=== PATIENT | female | born 1945 | race Caucasian/White ===

== ENCOUNTER 2020-04-26 07:44 | Outpatient (REF) | payer MEDICARE, SELFPAY ==
[2020-04-26 08:45] LABS: Basophils Absolute Auto 0.1 X10*3/uL (0.0-0.2); Basophils Percent Auto 0.5 % (0-2); Eosinophils Absolute Auto 0.6 X10*3/uL (0.0-0.4); Eosinophils Percent Auto 3.9 % (0-4); Hematocrit 44.7 % (37-47); Hemoglobin 14.6 g/dl (12.0-16.0); Imm Gran Abs Auto 0.03 X10*3/uL (0.00-0.03); Imm Gran Pct Auto 0.2 % (0.0-0.4); Lymphocytes Percent Auto 73.1 % (20-40); MANUAL DIFF FLAG SCAN; Mean Corpuscular HGB Conc 32.7 g/dl (31.0-35.0); Mean Corpuscular Hemoglobin 30.4 pg (27.0-33.0); Mean Corpuscular Volume 92.9 fL (80-98); Mean Platelet Volume 10.3 fL (9.4-12.3); Monocytes Absolute Auto 0.8 X10*3/uL (0.1-1.2); Monocytes Percent Auto 5.9 % (2-11); Neutrophils Absolute Auto 2.3 X10*3/uL (2.0-8.3); Neutrophils Percent Auto 16.4 % (45-73); Platelet Count 199 X10*3/uL (160-400); Red Blood Count 4.81 X10*6/uL (4.20-5.50); Red Cell Distribution Width 13.1 % (11.0-16.0); SCAN SMEAR FLAG 1
[2020-04-26 08:46] LABS: Lymphocytes Absolute Auto 10.3 X10*3/uL (1.2-4.9)
[2020-04-26 09:08] LABS: Alanine Aminotransferase 27 U/L (0-31); Albumin Level 4.5 g/dL (3.5-5.0); Alkaline Phosphatase 66 U/L (39-117); Anion Gap 11 (12-20); Aspartate Amino Transferase 23 U/L (5-31); Bilirubin Total 0.6 mg/dL (0.0-1.0); Blood Urea Nitrogen 15 mg/dL (9-16); Calcium 9.2 mg/dL (8.4-10.2); Carbon Dioxide 29 mmol/L (22-29); Chloride 103 mmol/L (96-108); Estimated Glomerular Filt Rate > 60; Glucose Random 107 mg/dL (60-115); Potassium 3.9 mmol/l (3.3-5.1); Sodium 139 mmol/L (135-145); Total Protein 6.9 g/dL (6.5-8.0)
[2020-04-26 09:48] LABS: SLIDE REVIEW VERIFIED
== END 2020-04-26 07:45 | disposition home or self-care (01) ==
LOC: HO.LAB 07:44
PROVIDERS: PCP Internal Medicine; Visit Provider Internal Medicine Medical Oncology
DX: D72.820 Lymphocytosis (symptomatic) (principal); E78.2 Mixed hyperlipidemia
CPT/HCPCS: 36415; 80053; 84550; 85025

== ENCOUNTER 2020-09-14 08:02 | Outpatient (REF) | payer MEDICARE, SELFPAY ==
[2020-09-14 08:46] LABS: Basophils Absolute Auto 0.1 X10*3/uL (0.0-0.2); Basophils Percent Auto 0.6 % (0-2); Eosinophils Absolute Auto 0.6 X10*3/uL (0.0-0.4); Eosinophils Percent Auto 3.7 % (0-4); Hematocrit 41.6 % (37-47); Hemoglobin 13.9 g/dl (12.0-16.0); Imm Gran Abs Auto 0.04 X10*3/uL (0.00-0.03); Imm Gran Pct Auto 0.2 % (0.0-0.4); Lymphocytes Percent Auto 77.6 % (20-40); MANUAL DIFF FLAG SCAN; Mean Corpuscular HGB Conc 33.4 g/dl (31.0-35.0); Mean Corpuscular Hemoglobin 30.9 pg (27.0-33.0); Mean Corpuscular Volume 92.4 fL (80-98); Mean Platelet Volume 10.9 fL (9.4-12.3); Monocytes Absolute Auto 0.8 X10*3/uL (0.1-1.2); Monocytes Percent Auto 4.8 % (2-11); Neutrophils Absolute Auto 2.2 X10*3/uL (2.0-8.3); Neutrophils Percent Auto 13.1 % (45-73); Platelet Count 180 X10*3/uL (160-400); Red Cell Distribution Width 12.9 % (11.0-16.0); SCAN SMEAR FLAG 1; White Blood Count 17.1 X10*3/uL (4.8-10.8)
[2020-09-14 08:51] LABS: Lymphocytes Absolute Auto 13.2 X10*3/uL (1.2-4.9)
[2020-09-14 09:25] LABS: Alanine Aminotransferase 28 U/L (0-31); Albumin Level 4.4 g/dL (3.5-5.0); Alkaline Phosphatase 62 U/L (39-117); Anion Gap 14 (12-20); Aspartate Amino Transferase 22 U/L (5-31); Bilirubin Total 0.7 mg/dL (0.0-1.0); Blood Urea Nitrogen 18 mg/dL (9-16); Calcium 9.3 mg/dL (8.4-10.2); Carbon Dioxide 28 mmol/L (22-29); Chloride 103 mmol/L (96-108); Estimated Glomerular Filt Rate > 60; Glucose Random 110 mg/dL (60-115); Potassium 4.5 mmol/L (3.3-5.1); Sodium 140 mmol/L (135-145); Total Protein 6.9 g/dL (6.5-8.0)
[2020-09-14 10:07] LABS: SLIDE REVIEW VERIFIED
== END 2020-09-14 08:03 | disposition home or self-care (01) ==
LOC: HO.LAB 08:02
PROVIDERS: PCP Internal Medicine; Visit Provider Internal Medicine Medical Oncology
DX: D72.820 Lymphocytosis (symptomatic) (principal); E66.9 Obesity, unspecified; E78.2 Mixed hyperlipidemia; C91.10 Chronic lymphocytic leukemia of B-cell type not having achieved remission
CPT/HCPCS: 36415; 80053; 85025

== ENCOUNTER 2020-12-13 08:15 | Outpatient (REF) | payer MEDICARE, SELFPAY ==
[2020-12-13 09:00] LABS: Basophils Absolute Auto 0.1 X10*3/uL (0.0-0.2); Basophils Percent Auto 0.6 % (0-2); Eosinophils Absolute Auto 0.5 X10*3/uL (0.0-0.4); Eosinophils Percent Auto 3.6 % (0-4); Hematocrit 42.3 % (37-47); Imm Gran Abs Auto 0.03 X10*3/uL (0.00-0.03); Imm Gran Pct Auto 0.2 % (0.0-0.4); MANUAL DIFF FLAG SCAN; Mean Corpuscular HGB Conc 33.1 g/dl (31.0-35.0); Mean Corpuscular Hemoglobin 30.8 pg (27.0-33.0); Mean Platelet Volume 10.5 fL (9.4-12.3); Monocytes Absolute Auto 0.9 X10*3/uL (0.1-1.2); Monocytes Percent Auto 6.8 % (2-11); Neutrophils Absolute Auto 2.1 X10*3/uL (2.0-8.3); Neutrophils Percent Auto 15.8 % (45-73); Platelet Count 196 X10*3/uL (160-400); Red Blood Count 4.55 X10*6/uL (4.20-5.50); Red Cell Distribution Width 13.1 % (11.0-16.0); SCAN SMEAR FLAG 1; White Blood Count 13.2 X10*3/uL (4.8-10.8)
[2020-12-13 09:03] LABS: Lymphocytes Absolute Auto 9.6 X10*3/uL (1.2-4.9)
[2020-12-13 09:20] LABS: Alanine Aminotransferase 27 U/L (0-31); Albumin Level 4.4 g/dL (3.5-5.0); Alkaline Phosphatase 64 U/L (39-117); Anion Gap 14 (12-20); Aspartate Amino Transferase 24 U/L (5-31); Blood Urea Nitrogen 17 mg/dL (9-16); Calcium 9.2 mg/dL (8.4-10.2); Carbon Dioxide 26 mmol/L (22-29); Chloride 100 mmol/L (96-108); Estimated Glomerular Filt Rate > 60; Glucose Random 112 mg/dL (60-115); Sodium 136 mmol/L (135-145); Total Protein 6.9 g/dL (6.5-8.0)
[2020-12-13 09:24] LABS: SLIDE REVIEW VERIFIED
[2020-12-14 11:42] LABS: Beta-2 Microglobulin, Serum 2.09 mg/L (< OR = 2.51)
== END 2020-12-13 08:16 | disposition home or self-care (01) ==
LOC: HO.LAB 08:15
PROVIDERS: PCP Internal Medicine; Visit Provider Internal Medicine Medical Oncology
DX: D72.820 Lymphocytosis (symptomatic) (principal); E78.2 Mixed hyperlipidemia; E66.9 Obesity, unspecified
CPT/HCPCS: 36415; 80053; 82232; 85025

== ENCOUNTER 2021-01-27 08:19 | Outpatient (REF) | payer MEDICARE, SELFPAY ==
[2021-01-27 08:52] LABS: Basophils Absolute Auto 0.1 X10*3/uL (0.0-0.2); Basophils Percent Auto 0.6 % (0-2); Eosinophils Absolute Auto 0.6 X10*3/uL (0.0-0.4); Eosinophils Percent Auto 4.2 % (0-4); Hematocrit 43.2 % (37-47); Hemoglobin 14.2 g/dl (12.0-16.0); Imm Gran Abs Auto 0.03 X10*3/uL (0.00-0.03); Imm Gran Pct Auto 0.2 % (0.0-0.4); Lymphocytes Percent Auto 73.2 % (20-40); MANUAL DIFF FLAG SCAN; Mean Corpuscular HGB Conc 32.9 g/dl (31.0-35.0); Mean Corpuscular Hemoglobin 30.6 pg (27.0-33.0); Mean Corpuscular Volume 93.1 fL (80-98); Mean Platelet Volume 10.2 fL (9.4-12.3); Monocytes Absolute Auto 0.9 X10*3/uL (0.1-1.2); Monocytes Percent Auto 6.2 % (2-11); Neutrophils Absolute Auto 2.3 X10*3/uL (2.0-8.3); Neutrophils Percent Auto 15.6 % (45-73); Platelet Count 190 X10*3/uL (160-400); Red Blood Count 4.64 X10*6/uL (4.20-5.50); Red Cell Distribution Width 13.4 % (11.0-16.0); SCAN SMEAR FLAG 1; White Blood Count 14.4 X10*3/uL (4.8-10.8)
[2021-01-27 08:56] LABS: Lymphocytes Absolute Auto 10.5 X10*3/uL (1.2-4.9)
[2021-01-27 09:22] LABS: Alanine Aminotransferase 32 U/L (0-31); Albumin Level 4.5 g/dL (3.5-5.0); Alkaline Phosphatase 65 U/L (39-117); Anion Gap 14 (12-20); Aspartate Amino Transferase 26 U/L (5-31); Bilirubin Total 0.7 mg/dL (0.0-1.0); Blood Urea Nitrogen 16 mg/dL (9-16); Calcium 9.9 mg/dL (8.4-10.2); Carbon Dioxide 27 mmol/L (22-29); Chloride 103 mmol/L (96-108); Cholesterol 183 mg/dL; Estimated Glomerular Filt Rate 58; Glucose Random 123 mg/dL (60-115); HDL Cholesterol 50 mg/dL; LDL Cholesterol Calculated 101 mg/dl; Potassium 4.4 mmol/L (3.3-5.1); Sodium 140 mmol/L (135-145); Total Protein 7.1 g/dL (6.5-8.0); Triglycerides 160 mg/dL
[2021-01-27 09:30] LABS: SLIDE REVIEW VERIFIED
== END 2021-01-27 08:20 | disposition home or self-care (01) ==
LOC: HO.LAB 08:19
PROVIDERS: PCP Internal Medicine; Visit Provider Internal Medicine
DX: E78.2 Mixed hyperlipidemia (principal); I10 Essential (primary) hypertension; Z72.0 Tobacco use
CPT/HCPCS: 36415; 80053; 80061; 85025

== ENCOUNTER 2021-04-14 08:17 | Outpatient (REF) | payer MEDICARE, SELFPAY ==
[2021-04-14 10:33] LABS: Basophils Absolute Auto 0.1 X10*3/uL (0.0-0.2); Basophils Percent Auto 0.5 % (0-2); Eosinophils Absolute Auto 0.4 X10*3/uL (0.0-0.4); Eosinophils Percent Auto 3.3 % (0-4); Hematocrit 42.9 % (37-47); Hemoglobin 14.2 g/dl (12.0-16.0); Imm Gran Abs Auto 0.03 X10*3/uL (0.00-0.03); Imm Gran Pct Auto 0.2 % (0.0-0.4); Lymphocytes Percent Auto 74.1 % (20-40); MANUAL DIFF FLAG SCAN; Mean Corpuscular HGB Conc 33.1 g/dl (31.0-35.0); Mean Corpuscular Hemoglobin 30.7 pg (27.0-33.0); Mean Corpuscular Volume 92.9 fL (80-98); Mean Platelet Volume 10.9 fL (9.4-12.3); Monocytes Absolute Auto 0.9 X10*3/uL (0.1-1.2); Monocytes Percent Auto 6.8 % (2-11); Neutrophils Percent Auto 15.1 % (45-73); Platelet Count 181 X10*3/uL (160-400); Red Blood Count 4.62 X10*6/uL (4.20-5.50); Red Cell Distribution Width 13.3 % (11.0-16.0); SCAN SMEAR FLAG 1; White Blood Count 13.2 X10*3/uL (4.8-10.8)
[2021-04-14 10:35] LABS: Alanine Aminotransferase 26 U/L (0-31); Albumin Level 4.4 g/dL (3.5-5.0); Alkaline Phosphatase 63 U/L (39-117); Anion Gap 16 (12-20); Aspartate Amino Transferase 26 U/L (5-31); Bilirubin Total 0.9 mg/dL (0.0-1.0); Blood Urea Nitrogen 16 mg/dL (9-16); Calcium 9.8 mg/dL (8.4-10.2); Carbon Dioxide 26 mmol/L (22-29); Chloride 103 mmol/L (96-108); Estimated Glomerular Filt Rate > 60; Glucose Random 95 mg/dL (60-115); Lactate Dehydrogenase 198 U/L (122-220); Potassium 3.9 mmol/L (3.3-5.1); Sodium 141 mmol/L (135-145)
[2021-04-14 10:38] LABS: Lymphocytes Absolute Auto 9.8 X10*3/uL (1.2-4.9)
[2021-04-14 13:16] LABS: SLIDE REVIEW VERIFIED
== END 2021-04-14 08:18 | disposition home or self-care (01) ==
LOC: HO.LAB 08:17
PROVIDERS: PCP Internal Medicine; Visit Provider Internal Medicine Medical Oncology
DX: C91.10 Chronic lymphocytic leukemia of B-cell type not having achieved remission (principal)
CPT/HCPCS: 36415; 80053; 83615; 85025

== ENCOUNTER 2021-04-27 08:05 | Outpatient (REF) | payer MEDICARE, SELFPAY ==
[2021-04-27 08:59] LABS: Estimated Average Glucose 108 mg/dL; Hemoglobin A1c % 5.4 %
[2021-04-27 09:07] LABS: Alanine Aminotransferase 34 U/L (0-31); Albumin Level 4.4 g/dL (3.5-5.0); Alkaline Phosphatase 64 U/L (39-117); Anion Gap 11 (12-20); Aspartate Amino Transferase 27 U/L (5-31); Bilirubin Total 0.8 mg/dL (0.0-1.0); Blood Urea Nitrogen 13 mg/dL (9-16); Calcium 9.4 mg/dL (8.4-10.2); Carbon Dioxide 29 mmol/L (22-29); Chloride 104 mmol/L (96-108); Estimated Glomerular Filt Rate > 60; Glucose Random 108 mg/dL (60-115); Potassium 4.2 mmol/L (3.3-5.1); Sodium 140 mmol/L (135-145); Total Protein 6.8 g/dL (6.5-8.0)
== END 2021-04-27 08:06 | disposition home or self-care (01) ==
LOC: HO.LAB 08:05
PROVIDERS: PCP Internal Medicine; Visit Provider Internal Medicine
DX: Z00.00 Encounter for general adult medical examination without abnormal findings (principal); E78.2 Mixed hyperlipidemia; I10 Essential (primary) hypertension; R73.01 Impaired fasting glucose; Z72.0 Tobacco use
CPT/HCPCS: 36415; 80053; 83036

== ENCOUNTER 2021-09-15 07:31 | Outpatient (REF) | payer MEDICARE, SELFPAY ==
[2021-09-15 08:25] LABS: Basophils Absolute Auto 0.1 X10*3/uL (0.0-0.2); Basophils Percent Auto 0.5 % (0-2); Eosinophils Absolute Auto 0.6 X10*3/uL (0.0-0.4); Eosinophils Percent Auto 3.4 % (0-4); Hematocrit 43.2 % (37.0-47.0); Hemoglobin 13.9 g/dl (12.0-16.0); Imm Gran Abs Auto 0.05 X10*3/uL (0.00-0.03); Imm Gran Pct Auto 0.3 % (0.0-0.4); Lymphocytes Percent Auto 73.9 % (20-40); MANUAL DIFF FLAG SCAN; Mean Corpuscular HGB Conc 32.2 g/dl (31.0-35.0); Mean Corpuscular Hemoglobin 30.8 pg (27.0-33.0); Mean Corpuscular Volume 95.6 fL (80.0-98.0); Mean Platelet Volume 10.6 fL (9.4-12.3); Monocytes Percent Auto 5.9 % (2-11); Neutrophils Absolute Auto 2.7 x10*3/uL (2.0-8.3); Platelet Count 190 X10*3/uL (160-400); Red Blood Count 4.52 X10*6/uL (4.20-5.50); Red Cell Distribution Width 13.1 % (11.0-16.0); SCAN SMEAR FLAG 1
[2021-09-15 08:27] LABS: Lymphocytes Absolute Auto 12.5 X10*3/uL (1.2-4.9)
[2021-09-15 08:46] LABS: Alanine Aminotransferase 24 U/L (0-31); Albumin Level 4.3 g/dL (3.5-5.0); Alkaline Phosphatase 65 U/L (39-117); Anion Gap 13 (12-20); Aspartate Amino Transferase 23 U/L (5-31); Bilirubin Total 0.9 mg/dL (0.0-1.0); Blood Urea Nitrogen 15 mg/dL (9-16); Calcium 9.5 mg/dL (8.4-10.2); Carbon Dioxide 29 mmol/L (22-29); Chloride 102 mmol/L (96-108); Estimated Glomerular Filt Rate > 60; Glucose Random 108 mg/dL (60-115); Lactate Dehydrogenase 169 U/L (122-220); Potassium 4.3 mmol/L (3.3-5.1); Sodium 140 mmol/L (135-145); Total Protein 6.9 g/dL (6.5-8.0)
[2021-09-15 08:52] LABS: SLIDE REVIEW VERIFIED
[2021-09-15 09:10] LABS: Erythrocyte Sedimentation Rate 7 MM/HR (0-20)
== END 2021-09-15 07:32 | disposition home or self-care (01) ==
LOC: HO.LAB 07:31
PROVIDERS: PCP Internal Medicine; Visit Provider Internal Medicine Medical Oncology
DX: E78.2 Mixed hyperlipidemia (principal); E66.9 Obesity, unspecified; C91.10 Chronic lymphocytic leukemia of B-cell type not having achieved remission
CPT/HCPCS: 36415; 80053; 83615; 85025; 85652

== ENCOUNTER 2021-10-10 12:52 | Outpatient (REF) | payer MEDICARE, SELFPAY ==
--- NOTE | ~2021-10-10 | MM_ITS ---
EXAMINATION: MM SCREENING DIGITAL BREAST TOMOSYNTHESIS, BILATERAL CLINICAL INFORMATION: Screening. Asymptomatic. The lifetime risk of breast cancer based on the Tyrer-Cuzick Model is 3.9%. COMPARISON: Mammography: February 20, 2019 and studies dating through February 04, 2015 TECHNIQUE: Digital breast tomosynthesis is performed in both the craniocaudal and mediolateral oblique views along with computer-aided detection (CAD). Synthesized 2D images are generated from the tomosynthesis. FINDINGS: There are scattered areas of fibroglandular density (ACR BI-RADS breast composition Category b). There are no significant masses, abnormal calcifications, or other abnormalities. MM/MM tomosynthesis screening BI IMPRESSION: There are no significant changes from prior study. ASSESSMENT: BI-RADS 1: Negative RECOMMENDATION: Routine annual mammography screening. This patient's information was entered into a reminder system with a target due date for their next mammogram.
== END 2021-10-10 12:53 | disposition home or self-care (01) ==
LOC: HO.MAMMO 12:52
PROVIDERS: PCP Internal Medicine; Visit Provider Internal Medicine Medical Oncology
DX: Z12.31 Encounter for screening mammogram for malignant neoplasm of breast (principal)
CPT/HCPCS: 77063; 77067

== ENCOUNTER 2022-01-26 07:56 | Outpatient (REF) | payer MEDICARE, SELFPAY ==
[2022-01-26 08:49] LABS: Basophils Absolute Auto 0.1 X10*3/uL (0.0-0.2); Basophils Percent Auto 0.6 % (0-2); Eosinophils Absolute Auto 0.6 X10*3/uL (0.0-0.4); Eosinophils Percent Auto 4.2 % (0-4); Hematocrit 42.4 % (37.0-47.0); Hemoglobin 14.2 g/dl (12.0-16.0); Imm Gran Abs Auto 0.03 X10*3/uL (0.00-0.03); Imm Gran Pct Auto 0.2 % (0.0-0.4); MANUAL DIFF FLAG SCAN; Mean Corpuscular HGB Conc 33.5 g/dl (31.0-35.0); Mean Corpuscular Hemoglobin 30.9 pg (27.0-33.0); Mean Corpuscular Volume 92.4 fL (80.0-98.0); Mean Platelet Volume 10.6 fL (9.4-12.3); Monocytes Absolute Auto 0.9 X10*3/uL (0.1-1.2); Monocytes Percent Auto 6.7 % (2-11); Neutrophils Absolute Auto 2.3 x10*3/uL (2.0-8.3); Neutrophils Percent Auto 16.3 % (45-73); Platelet Count 175 X10*3/uL (160-400); Red Blood Count 4.59 X10*6/uL (4.20-5.50); Red Cell Distribution Width 13.2 % (11.0-16.0); SCAN SMEAR FLAG 1
[2022-01-26 08:54] LABS: Lymphocytes Absolute Auto 10.1 X10*3/uL (1.2-4.9)
[2022-01-26 09:13] LABS: SLIDE REVIEW VERIFIED
[2022-01-26 09:27] LABS: Alanine Aminotransferase 26 U/L (0-31); Albumin Level 4.4 g/dL (3.5-5.0); Alkaline Phosphatase 61 U/L (39-117); Anion Gap 13 (12-20); Aspartate Amino Transferase 23 U/L (5-31); Bilirubin Total 0.9 mg/dL (0.0-1.0); Blood Urea Nitrogen 16 mg/dL (9-16); Calcium 9.2 mg/dL (8.4-10.2); Carbon Dioxide 28 mmol/L (22-29); Chloride 103 mmol/L (96-108); Cholesterol 186 mg/dL; Estimated Glomerular Filt Rate > 60; Glucose Random 104 mg/dL (60-115); HDL Cholesterol 50 mg/dL; LDL Cholesterol Calculated 89 mg/dl; Potassium 3.9 mmol/L (3.3-5.1); Sodium 140 mmol/L (135-145); Total Protein 7.1 g/dL (6.5-8.0); Triglycerides 237 mg/dL
== END 2022-01-26 07:57 | disposition home or self-care (01) ==
LOC: HO.LAB 07:56
PROVIDERS: PCP Internal Medicine; Visit Provider Internal Medicine
DX: E78.2 Mixed hyperlipidemia (principal); I10 Essential (primary) hypertension; J45.909 Unspecified asthma, uncomplicated; Z72.0 Tobacco use
CPT/HCPCS: 36415; 80053; 80061; 85025

== ENCOUNTER 2022-03-21 07:54 | Outpatient (REF) | payer MEDICARE, SELFPAY ==
[2022-03-21 08:37] LABS: Basophils Absolute Auto 0.1 X10*3/uL (0.0-0.2); Basophils Percent Auto 0.6 % (0-2); Eosinophils Absolute Auto 0.6 X10*3/uL (0.0-0.4); Hematocrit 42.1 % (37.0-47.0); Hemoglobin 14.3 g/dl (12.0-16.0); Imm Gran Abs Auto 0.05 X10*3/uL (0.00-0.03); Imm Gran Pct Auto 0.2 % (0.0-0.4); Lymphocytes Percent Auto 78.2 % (20-40); MANUAL DIFF FLAG SCAN; Mean Corpuscular Hemoglobin 30.7 pg (27.0-33.0); Mean Corpuscular Volume 90.3 fL (80.0-98.0); Monocytes Percent Auto 4.7 % (2-11); Neutrophils Absolute Auto 2.7 x10*3/uL (2.0-8.3); Neutrophils Percent Auto 13.3 % (45-73); Platelet Count 229 X10*3/uL (160-400); Red Blood Count 4.66 X10*6/uL (4.20-5.50); Red Cell Distribution Width 13.1 % (11.0-16.0); SCAN SMEAR FLAG 1; White Blood Count 20.4 X10*3/uL (4.8-10.8)
[2022-03-21 08:38] LABS: Lymphocytes Absolute Auto 15.9 X10*3/uL (1.2-4.9)
[2022-03-21 09:07] LABS: SLIDE REVIEW VERIFIED
[2022-03-21 09:30] LABS: Alanine Aminotransferase 30 U/L (0-31); Albumin Level 4.4 g/dL (3.5-5.0); Alkaline Phosphatase 59 U/L (39-117); Anion Gap 16 (12-20); Aspartate Amino Transferase 25 U/L (5-31); Bilirubin Total 0.9 mg/dL (0.0-1.0); Blood Urea Nitrogen 12 mg/dL (9-16); Calcium 9.3 mg/dL (8.4-10.2); Carbon Dioxide 26 mmol/L (22-29); Chloride 97 mmol/L (96-108); Estimated Glomerular Filt Rate > 60; Glucose Random 99 mg/dL (60-115); Potassium 4.3 mmol/L (3.3-5.1); Sodium 135 mmol/L (135-145); Total Protein 7.1 g/dL (6.5-8.0)
== END 2022-03-21 07:55 | disposition home or self-care (01) ==
LOC: HO.LAB 07:54
PROVIDERS: PCP Internal Medicine; Visit Provider Internal Medicine Medical Oncology
DX: C91.10 Chronic lymphocytic leukemia of B-cell type not having achieved remission (principal); E78.2 Mixed hyperlipidemia
CPT/HCPCS: 36415; 80053; 85025

== ENCOUNTER 2022-07-31 07:45 | Outpatient (REF) | payer MEDICARE, SELFPAY ==
[2022-07-31 08:58] LABS: Alanine Aminotransferase 40 U/L (0-31); Albumin Level 4.3 g/dL (3.5-5.0); Alkaline Phosphatase 68 U/L (39-117); Anion Gap 13 (12-20); Aspartate Amino Transferase 32 U/L (5-31); Bilirubin Total 0.9 mg/dL (0.0-1.0); Blood Urea Nitrogen 18 mg/dL (9-16); Calcium 9.9 mg/dL (8.4-10.2); Carbon Dioxide 28 mmol/L (22-29); Chloride 104 mmol/L (96-108); Estimated Glomerular Filt Rate > 60; Glucose Random 114 mg/dL (60-115); Potassium 3.8 mmol/L (3.3-5.1); Sodium 141 mmol/L (135-145)
== END 2022-07-31 07:46 | disposition home or self-care (01) ==
LOC: HO.LAB 07:45
PROVIDERS: PCP Internal Medicine; Visit Provider Internal Medicine
DX: Z00.00 Encounter for general adult medical examination without abnormal findings (principal); E78.2 Mixed hyperlipidemia; I10 Essential (primary) hypertension; Z72.0 Tobacco use
CPT/HCPCS: 36415; 80053

== ENCOUNTER 2022-10-10 08:01 | Outpatient (REF) | payer MEDICARE, SELFPAY ==
[2022-10-10 09:41] LABS: Basophils Absolute Auto 0.1 X10*3/uL (0.0-0.2); Basophils Percent Auto 0.6 % (0-2); Eosinophils Absolute Auto 0.7 X10*3/uL (0.0-0.4); Eosinophils Percent Auto 4.1 % (0-4); Hematocrit 43.1 % (37.0-47.0); Hemoglobin 13.8 g/dl (12.0-16.0); Imm Gran Abs Auto 0.02 X10*3/uL (0.00-0.03); Imm Gran Pct Auto 0.1 % (0.0-0.4); Lymphocytes Percent Auto 77.1 % (20-40); MANUAL DIFF FLAG SCAN; Mean Corpuscular Hemoglobin 29.6 pg (27.0-33.0); Mean Corpuscular Volume 92.3 fL (80.0-98.0); Mean Platelet Volume 11.1 fL (9.4-12.3); Monocytes Absolute Auto 0.8 X10*3/uL (0.1-1.2); Monocytes Percent Auto 5.3 % (2-11); Neutrophils Percent Auto 12.8 % (45-73); Platelet Count 186 X10*3/uL (160-400); Red Blood Count 4.67 X10*6/uL (4.20-5.50); Red Cell Distribution Width 12.6 % (11.0-16.0); SCAN SMEAR FLAG 1; White Blood Count 15.8 X10*3/uL (4.8-10.8)
[2022-10-10 09:43] LABS: Lymphocytes Absolute Auto 12.2 X10*3/uL (1.2-4.9)
[2022-10-10 10:19] LABS: Alanine Aminotransferase 25 U/L (0-31); Albumin Level 4.2 g/dL (3.5-5.0); Alkaline Phosphatase 62 U/L (39-117); Anion Gap 11 (12-20); Aspartate Amino Transferase 21 U/L (5-31); Bilirubin Total 0.8 mg/dL (0.0-1.0); Blood Urea Nitrogen 16 mg/dL (9-16); Calcium 9.4 mg/dL (8.4-10.2); Carbon Dioxide 30 mmol/L (22-29); Chloride 105 mmol/L (96-108); Estimated Glomerular Filt Rate > 60; Glucose Random 108 mg/dL (60-115); Lactate Dehydrogenase 189 U/L (122-220); Potassium 4.1 mmol/L (3.3-5.1); Sodium 142 mmol/L (135-145); Total Protein 6.7 g/dL (6.5-8.0)
[2022-10-10 10:25] LABS: SLIDE REVIEW VERIFIED
[2022-10-12 15:08] LABS: Beta-2 Microglobulin, Serum 2.68 mg/L (< OR = 2.51)
== END 2022-10-10 08:02 | disposition home or self-care (01) ==
LOC: HO.LAB 08:01
PROVIDERS: PCP Internal Medicine; Visit Provider Internal Medicine Medical Oncology
DX: C91.10 Chronic lymphocytic leukemia of B-cell type not having achieved remission (principal)
CPT/HCPCS: 36415; 80053; 82232; 83615; 85025

== ENCOUNTER 2023-01-30 07:17 | Outpatient (REF) | payer MEDICARE, SELFPAY ==
[2023-01-30 08:26] LABS: Basophils Absolute Auto 0.1 X10*3/uL (0.0-0.2); Basophils Percent Auto 0.5 % (0-2); Eosinophils Absolute Auto 0.8 X10*3/uL (0.0-0.4); Eosinophils Percent Auto 4.6 % (0-4); Hematocrit 42.1 % (37.0-47.0); Hemoglobin 13.8 g/dl (12.0-16.0); Imm Gran Abs Auto 0.03 X10*3/uL (0.00-0.03); Imm Gran Pct Auto 0.2 % (0.0-0.4); Lymphocytes Percent Auto 78.6 % (20-40); MANUAL DIFF FLAG SCAN; Mean Corpuscular HGB Conc 32.8 g/dl (31.0-35.0); Mean Corpuscular Hemoglobin 29.1 pg (27.0-33.0); Mean Corpuscular Volume 88.6 fL (80.0-98.0); Mean Platelet Volume 10.8 fL (9.4-12.3); Monocytes Absolute Auto 0.9 X10*3/uL (0.1-1.2); Monocytes Percent Auto 4.8 % (2-11); Neutrophils Percent Auto 11.3 % (45-73); Platelet Count 187 X10*3/uL (160-400); Red Blood Count 4.75 X10*6/uL (4.20-5.50); Red Cell Distribution Width 12.9 % (11.0-16.0); SCAN SMEAR FLAG 1; White Blood Count 17.8 X10*3/uL (4.8-10.8)
[2023-01-30 08:50] LABS: SLIDE REVIEW VERIFIED
[2023-01-30 09:12] LABS: Alanine Aminotransferase 20 U/L (0-31); Albumin Level 4.3 g/dL (3.5-5.0); Alkaline Phosphatase 57 U/L (39-117); Anion Gap 15 (12-20); Aspartate Amino Transferase 21 U/L (5-31); Bilirubin Total 0.8 mg/dL (0.0-1.0); Blood Urea Nitrogen 18 mg/dL (9-16); Calcium 9.8 mg/dL (8.4-10.2); Carbon Dioxide 26 mmol/L (22-29); Chloride 103 mmol/L (96-108); Cholesterol 173 mg/dL; Estimated Glomerular Filt Rate > 60; Glucose Random 97 mg/dL (60-115); HDL Cholesterol 45 mg/dL; LDL Cholesterol Calculated 89 mg/dl; Potassium 3.7 mmol/L (3.3-5.1); Sodium 140 mmol/L (135-145); Total Protein 7.2 g/dL (6.5-8.0); Triglycerides 198 mg/dL
[2023-01-30 09:31] LABS: Thyroid Stimulating Hormone 2.14 uIU/mL (0.32-4.0)
== END 2023-01-30 07:18 | disposition home or self-care (01) ==
LOC: HO.LAB 07:17
PROVIDERS: PCP Internal Medicine; Visit Provider Internal Medicine
DX: C91.11 Chronic lymphocytic leukemia of B-cell type in remission (principal); E78.5 Hyperlipidemia, unspecified; I10 Essential (primary) hypertension; R74.01 Elevation of levels of liver transaminase levels; Z72.0 Tobacco use
CPT/HCPCS: 36415; 80053; 80061; 84443; 85025

== ENCOUNTER 2023-04-17 06:58 | Outpatient (REF) | payer MEDICARE, SELFPAY ==
[2023-04-17 07:38] LABS: Basophils Absolute Auto 0.1 X10*3/uL (0.0-0.2); Basophils Percent Auto 0.6 % (0-2); Eosinophils Absolute Auto 0.9 X10*3/uL (0.0-0.4); Eosinophils Percent Auto 4.7 % (0-4); Hematocrit 43.6 % (37.0-47.0); Hemoglobin 14.3 g/dl (12.0-16.0); Imm Gran Abs Auto 0.03 X10*3/uL (0.00-0.03); Imm Gran Pct Auto 0.2 % (0.0-0.4); Lymphocytes Percent Auto 79.9 % (20-40); MANUAL DIFF FLAG SCAN; Mean Corpuscular HGB Conc 32.8 g/dl (31.0-35.0); Mean Corpuscular Hemoglobin 29.5 pg (27.0-33.0); Mean Corpuscular Volume 89.9 fL (80.0-98.0); Mean Platelet Volume 10.3 fL (9.4-12.3); Monocytes Absolute Auto 0.8 X10*3/uL (0.1-1.2); Monocytes Percent Auto 4.6 % (2-11); Neutrophils Absolute Auto 1.8 x10*3/uL (2.0-8.3); Platelet Count 181 X10*3/uL (160-400); Red Blood Count 4.85 X10*6/uL (4.20-5.50); Red Cell Distribution Width 13.2 % (11.0-16.0); SCAN SMEAR FLAG 1; White Blood Count 18.1 X10*3/uL (4.8-10.8)
[2023-04-17 07:40] LABS: Lymphocytes Absolute Auto 14.5 X10*3/uL (1.2-4.9)
[2023-04-17 08:07] LABS: Alanine Aminotransferase 21 U/L (0-31); Albumin Level 4.4 g/dL (3.5-5.0); Alkaline Phosphatase 66 U/L (39-117); Anion Gap 13 (12-20); Aspartate Amino Transferase 21 U/L (5-31); Bilirubin Total 0.6 mg/dL (0.0-1.0); Blood Urea Nitrogen 15 mg/dL (9-16); Calcium 9.7 mg/dL (8.4-10.2); Carbon Dioxide 27 mmol/L (22-29); Chloride 105 mmol/L (96-108); Estimated Glomerular Filt Rate > 60; Glucose Random 95 mg/dL (60-115); Lactate Dehydrogenase 172 U/L (122-220); Potassium 4.1 mmol/L (3.3-5.1); Sodium 141 mmol/L (135-145); Total Protein 7.2 g/dL (6.5-8.0)
[2023-04-17 08:27] LABS: SLIDE REVIEW VERIFIED
[2023-04-17 08:29] LABS: Erythrocyte Sedimentation Rate 7 MM/HR (0-20)
== END 2023-04-17 06:59 | disposition home or self-care (01) ==
LOC: HO.LAB 06:58
PROVIDERS: PCP Internal Medicine; Visit Provider Internal Medicine Medical Oncology
DX: C91.10 Chronic lymphocytic leukemia of B-cell type not having achieved remission (principal); E78.2 Mixed hyperlipidemia; E66.3 Overweight
CPT/HCPCS: 36415; 80053; 83615; 85025; 85652

== ENCOUNTER 2023-08-18 07:19 | Outpatient (REF) | payer MEDICARE, SELFPAY ==
[2023-08-18 09:26] LABS: Basophils Absolute Auto 0.1 X10*3/uL (0.0-0.2); Basophils Percent Auto 0.4 % (0-2); Eosinophils Absolute Auto 0.5 X10*3/uL (0.0-0.4); Eosinophils Percent Auto 2.8 % (0-4); Hematocrit 38.3 % (37.0-47.0); Hemoglobin 12.3 g/dl (12.0-16.0); Imm Gran Abs Auto 0.02 X10*3/uL (0.00-0.03); Imm Gran Pct Auto 0.1 % (0.0-0.4); Lymphocytes Absolute Auto 15.8 X10*3/uL (1.2-4.9); Lymphocytes Percent Auto 81.9 % (20-40); MANUAL DIFF FLAG SCAN; Mean Corpuscular HGB Conc 32.1 g/dl (31.0-35.0); Mean Corpuscular Hemoglobin 29.1 pg (27.0-33.0); Mean Corpuscular Volume 90.5 fL (80.0-98.0); Mean Platelet Volume 10.3 fL (9.4-12.3); Monocytes Absolute Auto 0.8 X10*3/uL (0.1-1.2); Monocytes Percent Auto 4.1 % (2-11); Neutrophils Absolute Auto 2.1 x10*3/uL (2.0-8.3); Neutrophils Percent Auto 10.7 % (45-73); Platelet Count 203 X10*3/uL (160-400); Red Blood Count 4.23 X10*6/uL (4.20-5.50); Red Cell Distribution Width 13.4 % (11.0-16.0); SCAN SMEAR FLAG 1; White Blood Count 19.2 X10*3/uL (4.8-10.8)
[2023-08-18 10:19] LABS: SLIDE REVIEW VERIFIED
[2023-08-18 10:30] LABS: Alanine Aminotransferase 19 U/L (0-31); Albumin Level 3.9 g/dL (3.5-5.0); Alkaline Phosphatase 61 U/L (39-117); Anion Gap 16 (12-20); Aspartate Amino Transferase 19 U/L (5-31); Bilirubin Total 0.5 mg/dL (0.0-1.0); Blood Urea Nitrogen 14 mg/dL (9-16); Calcium 9.5 mg/dL (8.4-10.2); Carbon Dioxide 26 mmol/L (22-29); Chloride 104 mmol/L (96-108); Estimated Glomerular Filt Rate 54; Glucose Random 85 mg/dL (60-115); Potassium 4.3 mmol/L (3.3-5.1); Sodium 142 mmol/L (135-145); Total Protein 6.9 g/dL (6.5-8.0)
[2023-08-23 14:09] LABS: Vitamin D 25-OH, D2 <4 ng/mL; Vitamin D 25-OH, D3 32 ng/mL; Vitamin D 25-OH, Total 32 ng/mL (30-100)
== END 2023-08-18 07:20 | disposition home or self-care (01) ==
LOC: HO.LAB 07:19
PROVIDERS: PCP Internal Medicine; Visit Provider Internal Medicine
DX: Z00.00 Encounter for general adult medical examination without abnormal findings (principal); E78.00 Pure hypercholesterolemia, unspecified; C91.10 Chronic lymphocytic leukemia of B-cell type not having achieved remission; M81.8 Other osteoporosis without current pathological fracture; Z72.0 Tobacco use
CPT/HCPCS: 36415; 80053; 82306; 85025

== ENCOUNTER 2023-10-16 08:28 | Outpatient (REF) | payer MEDICARE, SELFPAY ==
[2023-10-16 09:30] LABS: Alanine Aminotransferase 32 U/L (0-31); Albumin Level 4.2 g/dL (3.5-5.0); Alkaline Phosphatase 64 U/L (39-117); Anion Gap 11 (12-20); Aspartate Amino Transferase 27 U/L (5-31); Bilirubin Total 0.5 mg/dL (0.0-1.0); Blood Urea Nitrogen 19 mg/dL (9-16); Calcium 9.5 mg/dL (8.4-10.2); Carbon Dioxide 29 mmol/L (22-29); Chloride 105 mmol/L (96-108); Cholesterol 215 mg/dL (<200); Estimated Glomerular Filt Rate 54; Glucose Fasting 104 mg/dL (60-99); HDL Cholesterol 54 mg/dL (>40); LDL Cholesterol Calculated 122 mg/dL (<100); Lactate Dehydrogenase 175 U/L (122-220); Potassium 3.9 mmol/L (3.3-5.1); Sodium 141 mmol/L (135-145); Total Protein 7.2 g/dL (6.5-8.0); Triglycerides 198 mg/dL (<150)
[2023-10-16 09:41] LABS: Basophils Absolute Auto 0.1 X10*3/uL (0.0-0.2); Basophils Percent Auto 0.6 % (0-2); Eosinophils Absolute Auto 0.5 X10*3/uL (0.0-0.4); Eosinophils Percent Auto 3.3 % (0-4); Hematocrit 39.7 % (37.0-47.0); Hemoglobin 13.1 g/dl (12.0-16.0); Imm Gran Abs Auto 0.02 X10*3/uL (0.00-0.03); Imm Gran Pct Auto 0.1 % (0.0-0.4); MANUAL DIFF FLAG SCAN; Mean Corpuscular Hemoglobin 29.7 pg (27.0-33.0); Mean Platelet Volume 10.5 fL (9.4-12.3); Monocytes Absolute Auto 0.8 X10*3/uL (0.1-1.2); Monocytes Percent Auto 5.4 % (2-11); Neutrophils Absolute Auto 1.8 x10*3/uL (2.0-8.3); Neutrophils Percent Auto 12.6 % (45-73); Platelet Count 196 X10*3/uL (160-400); Red Blood Count 4.41 X10*6/uL (4.20-5.50); Red Cell Distribution Width 13.3 % (11.0-16.0); SCAN SMEAR FLAG 1; White Blood Count 14.5 X10*3/uL (4.8-10.8)
[2023-10-16 09:43] LABS: Lymphocytes Absolute Auto 11.3 X10*3/uL (1.2-4.9)
[2023-10-16 10:03] LABS: SLIDE REVIEW VERIFIED
[2023-10-16 10:58] LABS: Erythrocyte Sedimentation Rate 9 MM/HR (0-20)
== END 2023-10-16 08:29 | disposition home or self-care (01) ==
LOC: HO.LAB 08:28
PROVIDERS: PCP Internal Medicine; Referring Provider Internal Medicine; Visit Provider Internal Medicine Medical Oncology
DX: C91.10 Chronic lymphocytic leukemia of B-cell type not having achieved remission (principal); E78.2 Mixed hyperlipidemia; E66.3 Overweight
CPT/HCPCS: 36415; 80053; 80061; 83615; 85025; 85652

== ENCOUNTER 2024-01-30 06:46 | Outpatient (REF) | payer MEDICARE, SELFPAY ==
--- NOTE | ~2024-01-30 | XR_ITS ---
EXAMINATION: XR CHEST CLINICAL INFORMATION: Chronic lymphocytic leukemia, nicotine dependence. COMPARISON: None available. TECHNIQUE: 2 views of the chest were obtained. FINDINGS: The lungs are well-inflated. Heart size is normal. There is no gross pneumothorax. Hazy bibasilar opacities of indeterminate age and etiology may represent an infectious/inflammatory process, atelectasis/scar or other etiology in this patient with history of nicotine dependence and chronic lymphocytic leukemia. Degenerative changes in the thoracic spine. Bilateral costophrenic angle blunting may represent trace pleural effusions versus pleural thickening. XR/XR chest 2V IMPRESSION: Hazy bibasilar opacities of indeterminate age and etiology may represent an infectious/inflammatory process, atelectasis/scar or other etiology in this patient with history of nicotine dependence and chronic lymphocytic leukemia. Direct correlation with prior images is recommended and if prior images are provided, an addendum will be . In the absence of prior images, with intravenous contrast recommended.
[2024-01-30 08:01] LABS: Basophils Absolute Auto 0.1 X10*3/uL (0.0-0.2); Basophils Percent Auto 0.7 % (0-2); Eosinophils Absolute Auto 0.6 X10*3/uL (0.0-0.4); Hematocrit 38.4 % (37.0-47.0); Hemoglobin 12.8 g/dl (12.0-16.0); Imm Gran Abs Auto 0.02 X10*3/uL (0.00-0.03); Imm Gran Pct Auto 0.1 % (0.0-0.4); Lymphocytes Percent Auto 73.7 % (20-40); MANUAL DIFF FLAG SCAN; Mean Corpuscular HGB Conc 33.3 g/dl (31.0-35.0); Mean Corpuscular Hemoglobin 29.9 pg (27.0-33.0); Mean Corpuscular Volume 89.7 fL (80.0-98.0); Mean Platelet Volume 10.6 fL (9.4-12.3); Monocytes Absolute Auto 0.8 X10*3/uL (0.1-1.2); Monocytes Percent Auto 5.7 % (2-11); Neutrophils Absolute Auto 2.3 x10*3/uL (2.0-8.3); Neutrophils Percent Auto 15.8 % (45-73); Platelet Count 183 X10*3/uL (160-400); Red Blood Count 4.28 X10*6/uL (4.20-5.50); Red Cell Distribution Width 13.5 % (11.0-16.0); SCAN SMEAR FLAG 1; White Blood Count 14.7 X10*3/uL (4.8-10.8)
[2024-01-30 08:06] LABS: Lymphocytes Absolute Auto 10.8 X10*3/uL (1.2-4.9)
[2024-01-30 08:23] LABS: Alanine Aminotransferase 23 U/L (0-31); Albumin Level 4.4 g/dL (3.5-5.0); Alkaline Phosphatase 63 U/L (39-117); Anion Gap 12 (12-20); Aspartate Amino Transferase 25 U/L (5-31); Bilirubin Total 0.5 mg/dL (0.0-1.0); Blood Urea Nitrogen 26 mg/dL (9-16); Calcium 10.2 mg/dL (8.4-10.2); Carbon Dioxide 29 mmol/L (22-29); Chloride 106 mmol/L (96-108); Cholesterol 186 mg/dL (<200); Estimated Glomerular Filt Rate 42; Glucose Random 96 mg/dL (60-115); HDL Cholesterol 48 mg/dL (>40); LDL Cholesterol Calculated 110 mg/dL (<100); Potassium 4.1 mmol/L (3.3-5.1); Sodium 143 mmol/L (135-145); Total Protein 7.1 g/dL (6.5-8.0); Triglycerides 143 mg/dL (<150)
[2024-01-30 09:01] LABS: SLIDE REVIEW VERIFIED
== END 2024-01-30 06:47 | disposition home or self-care (01) ==
LOC: HO.LAB 06:46
PROVIDERS: PCP Internal Medicine; Visit Provider Internal Medicine
DX: C91.11 Chronic lymphocytic leukemia of B-cell type in remission (principal); E78.00 Pure hypercholesterolemia, unspecified; F17.201 Nicotine dependence, unspecified, in remission; I10 Essential (primary) hypertension
CPT/HCPCS: 36415; 71046; 80053; 80061; 85025

== ENCOUNTER 2024-04-15 07:33 | Outpatient (REF) | payer MEDICARE, SELFPAY ==
[2024-04-15 08:25] LABS: Basophils Absolute Auto 0.1 X10*3/uL (0.0-0.2); Basophils Percent Auto 0.7 % (0-2); Eosinophils Absolute Auto 0.5 X10*3/uL (0.0-0.4); Eosinophils Percent Auto 3.2 % (0-4); Hematocrit 39.2 % (37.0-47.0); Imm Gran Abs Auto 0.02 X10*3/uL (0.00-0.03); Imm Gran Pct Auto 0.1 % (0.0-0.4); Lymphocytes Absolute Auto 11.4 X10*3/uL (1.2-4.9); Lymphocytes Percent Auto 77.8 % (20-40); MANUAL DIFF FLAG SCAN; Mean Corpuscular HGB Conc 33.2 g/dl (31.0-35.0); Mean Corpuscular Hemoglobin 29.7 pg (27.0-33.0); Mean Corpuscular Volume 89.5 fL (80.0-98.0); Mean Platelet Volume 10.6 fL (9.4-12.3); Monocytes Absolute Auto 0.8 X10*3/uL (0.1-1.2); Monocytes Percent Auto 5.3 % (2-11); Neutrophils Absolute Auto 1.9 x10*3/uL (2.0-8.3); Neutrophils Percent Auto 12.9 % (45-73); Platelet Count 169 X10*3/uL (160-400); Red Blood Count 4.38 X10*6/uL (4.20-5.50); Red Cell Distribution Width 13.2 % (11.0-16.0); SCAN SMEAR FLAG 1; White Blood Count 14.7 X10*3/uL (4.8-10.8)
[2024-04-15 08:50] LABS: Alanine Aminotransferase 24 U/L (0-31); Albumin Level 4.4 g/dL (3.5-5.0); Alkaline Phosphatase 64 U/L (39-117); Anion Gap 12 (12-20); Aspartate Amino Transferase 24 U/L (5-31); Bilirubin Total 0.5 mg/dL (0.0-1.0); Blood Urea Nitrogen 24 mg/dL (9-16); Calcium 10.2 mg/dL (8.4-10.2); Carbon Dioxide 30 mmol/L (22-29); Chloride 105 mmol/L (96-108); Estimated Glomerular Filt Rate 44; Glucose Random 110 mg/dL (60-115); Lactate Dehydrogenase 202 U/L (122-220); Potassium 4.4 mmol/L (3.3-5.1); Sodium 143 mmol/L (135-145); Total Protein 7.3 g/dL (6.5-8.0)
[2024-04-15 08:52] LABS: SLIDE REVIEW VERIFIED
[2024-04-15 09:04] LABS: Erythrocyte Sedimentation Rate 8 MM/HR (0-20)
[2024-04-16 12:04] LABS: Beta-2 Microglobulin, Serum 2.91 mg/L (< OR = 2.51)
== END 2024-04-15 07:34 | disposition home or self-care (01) ==
LOC: HO.LAB 07:33
PROVIDERS: PCP Internal Medicine; Visit Provider Internal Medicine Medical Oncology
DX: C91.10 Chronic lymphocytic leukemia of B-cell type not having achieved remission (principal); E78.2 Mixed hyperlipidemia; E66.3 Overweight
CPT/HCPCS: 36415; 80053; 82232; 83615; 85025; 85652

== ENCOUNTER 2024-10-14 08:05 | Outpatient (REF) | payer MEDICARE, SELFPAY ==
[2024-10-14 08:56] LABS: Basophils Absolute Auto 0.1 X10*3/uL (0.0-0.2); Basophils Percent Auto 0.7 % (0-2); Eosinophils Absolute Auto 0.5 X10*3/uL (0.0-0.4); Eosinophils Percent Auto 3.5 % (0-4); Hematocrit 39.6 % (37.0-47.0); Imm Gran Abs Auto 0.03 X10*3/uL (0.00-0.03); Imm Gran Pct Auto 0.2 % (0.0-0.4); Lymphocytes Percent Auto 75.7 % (20-40); MANUAL DIFF FLAG SCAN; Mean Corpuscular HGB Conc 32.8 g/dl (31.0-35.0); Mean Corpuscular Hemoglobin 29.7 pg (27.0-33.0); Mean Corpuscular Volume 90.6 fL (80.0-98.0); Mean Platelet Volume 10.4 fL (9.4-12.3); Monocytes Absolute Auto 0.7 X10*3/uL (0.1-1.2); Neutrophils Absolute Auto 2.2 x10*3/uL (2.0-8.3); Neutrophils Percent Auto 14.9 % (45-73); Platelet Count 179 X10*3/uL (160-400); Red Blood Count 4.37 X10*6/uL (4.20-5.50); Red Cell Distribution Width 13.2 % (11.0-16.0); SCAN SMEAR FLAG 1; White Blood Count 14.8 X10*3/uL (4.8-10.8)
[2024-10-14 08:57] LABS: Lymphocytes Absolute Auto 11.2 X10*3/uL (1.2-4.9)
[2024-10-14 09:24] LABS: SLIDE REVIEW VERIFIED
[2024-10-14 09:34] LABS: Erythrocyte Sedimentation Rate 10 MM/HR (0-20)
[2024-10-14 09:42] LABS: Alanine Aminotransferase 26 U/L (0-31); Albumin Level 4.3 g/dL (3.5-5.0); Alkaline Phosphatase 53 U/L (39-117); Anion Gap 10 (12-20); Aspartate Amino Transferase 24 U/L (5-31); Bilirubin Total 0.4 mg/dL (0.0-1.0); Blood Urea Nitrogen 33 mg/dL (9-16); Calcium 9.7 mg/dL (8.4-10.2); Carbon Dioxide 28 mmol/L (22-29); Chloride 111 mmol/L (96-108); Estimated Glomerular Filt Rate 46; Glucose Random 105 mg/dL (60-115); Lactate Dehydrogenase 192 U/L (122-220); Potassium 4.5 mmol/L (3.3-5.1); Sodium 144 mmol/L (135-145); Total Protein 7.1 g/dL (6.5-8.0)
[2024-10-15 09:04] LABS: Beta-2 Microglobulin, Serum 2.48 mg/L (< OR = 2.51)
== END 2024-10-14 08:06 | disposition home or self-care (01) ==
LOC: HO.LAB 08:05
PROVIDERS: PCP Internal Medicine; Visit Provider Internal Medicine Medical Oncology
DX: C91.10 Chronic lymphocytic leukemia of B-cell type not having achieved remission (principal); E66.3 Overweight; E78.2 Mixed hyperlipidemia
CPT/HCPCS: 36415; 80053; 82232; 83615; 85025; 85652

== ENCOUNTER 2024-12-31 07:25 | Outpatient (REF) | payer MEDICARE, SELFPAY ==
--- OUTSIDE RECORDS SUMMARY | 2024-12-31 07:28 | XMS_ITS ---
Author Organization Mamadou Rodriguez III, MD Address [address] [facility] [place] [address] Care Team Providers Care Social Service Coordinator Name Role Phone Jeniffer COLINDRES, [facility] Primary Care Provider Mamadou Freeman Unavailable [phone] Allergies Allergen (clinical drug ingredient) Drug/Non Drug [...] Date Provider Diagnosis Mamadou Rodriguez III, MD [address] [place] [address] DR [place]NAS [place]UZITO, [place] [id number] 04/24/2024 Mamadou Rodriguez Chronic lymphocytic leukemia C91.10 [...] OV Provider Name:Mamadou Rodriguez, 04/30/2025 11:00:00 AM, [address] [place] [address] [place], [id number], Progress Notes * Clementina SCHUMACHERaDOB:1944 (78 yo F)Acc No.[id number]:04/24/2024 Progress Notes Patient:?Anabella SCHUMACHER Provider:?Mamadou Rodriguez MD :1945???Age:78 Y???Sex:Female D ate:04/24/2024 Address:[address] [place], [place] [address] [id number] Pcp:Angela Swift MD Subjective: * Chief Complaints: * ???Chronic lymphocytic leuke miaGERDHyperlipidemiaOsteopeniaTobacco dependence * HPI: ???COVID-19 Screening:? She returns to the office for medical management of chronic lymphocytic leukemia.? She is seen every 6 months.? Since her last visit she has been well. Her blood work today showed no sign of disease progression.? She has had no B symptoms.? She denies fever chills or pain.? She has had no adenopathy.? Her blood work was reviewed with her in detail.? Observation was continued.? She has had no bleeding or infections. ?Questions?Have you experienced fever, chills, cough, sore throat, shortness of breath, difficulty breathing, muscle aches, loss of taste or smell??No ?Have you been exposed to the virus within the last 10 days??No ?Have you travelled internationally in the last 10 days??No ?Have you been exposed to COVID-19 in the past??No * ROS:?General/Constitutional:?pain?only normal aches and pains.?Chills?denies.?Fatigue?admits.?Fever?denies.?ENT:?Decreased hearing?denies.?Respiratory:?Cough?non-productive.?Cardiovascular:?Chest pain with exertion?denies.?Dyspnea on exertion?denies.?Shortness of breath?denies.?Gastrointestinal:?Constipation?denies.?Decreased appetite?denies.?Diarrhea?denies.?Heartburn?denies.?Nausea?denies.?Rectal bleeding?denies.?Vomiting?denies.?Hematology:?bruising?denies.?petechiae?denies.?Swollen glands?none have been noted.?Genitourinary:?Frequent urination?at night.?Musculoskeletal:?Muscle aches?denies.?Painful joints?denies.?Sciatica?denies.?Weakness?denies.?Skin:?Itching?denies.?Rash?denies.?Skin lesion(s)?denies.?Neurologic:?Difficulty speaking?denies.?Dizziness?denies.?Headache?denies.?Low back pain?denies.?Psychiatric:?Depressed mood?denies.? * Medical History:? * Surgical History:?none repor sangeetha * Hospitalization/Major Diagno stic Procedure:?Denies Past Hospitalization * Family History:?Father: dece ased 90 yrs, Asthma, dementia, hyperlipidemia.?Mother: 91 yrs, Nephrolithiasis.?Siblings: alive.?1 brother(s) , 2 sister(s) - healthy. .? Her father suffered from dementia and hyperlipidemia and asthma. Her mother suffered from nephrolithiasis. They both of old age. Her siblings are healthy and well. She is unaware of any family history of lymphoproliferative disease or of inherited malignancies. * Social History:?Tobacco Use:?Tobacco Use/Smoking?Patient is a?former smoker ?How long has it been since you last smoked??3-6 months ?Additional Findings: Tobacco Non-User?Current non-smoker ???She was born in [place] and came to [facility] at the age of 33. She is with no children. She lives in [facility]. 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 She does not remember any exposure to benzoin. * Medications:?TakingFamotidin e 40 MG Tablet 1 tablet at bedtime [...] reviewed and reconciled with the patient * Allergies:?Atorvastatin Calc iumAspirinPenicillin: AllergyHydrochlorothiazide: Allergyno[Allergies Verified] Objective: * Vitals:?Ht: 63, Wt:159, BMI: 28.16, BP:136/64, HR:63, Temp:97.6, Wt-k.12. * ???Past Orders: Lab:Lactate Dehydrogenase * Collection Date 04/15/2024 [...] 105 (Ref Range: 96-108 mmol/L) Carbon Dioxide 30?H (Ref Range: 22-29 mmol/L) 27 (Ref Range: 22-29 mmol/L) 30?H (Ref Range: 22-29 mmol/L) Anion Gap 12 (Ref Range: 12-20) 13 (Ref Range: 12-20) 11?L (Ref Range: 12-20) Blood Urea Nitrogen 24?H (Ref Range: 9-16 mg/dL) 15 (Ref Range: [...] 08:42 AM 07:11 AM Order Date 04/15/2024 10/16/202304/17/2023 White Blood Count 14.7?H (Ref Range: 4.8-10.8 X10*3/uL) 14.5?H (Ref Range: 4.8-10.8 X10*3/uL) 18.1?H (Ref Range: 4.8-10.8 X10*3/uL) Red Blood Count [...] (Ref Range: 9.4-12.3 fL) Neutrophils Percent Auto 12.9?L (Ref Range: 45-73 %) 12.6?L (Ref Range: 45-73 %) 10.0?L (Ref Range: 45-73 %) Imm Gran Pct Auto 0.1 (Ref Range: 0.0-0.4 %) 0.1 (Ref Range: 0.0-0.4 %) 0.2 (Ref Range: 0.0-0.4 %) Lymphocytes Percent Auto 77.8?H (Ref Range: 20-40 %) 78.0?H (Ref Range: 20-40 %) 79.9?H (Ref Range: 20-40 %) Monocytes Percent Auto 5.3 (Ref Range: 2-11 %) 5.4 (Ref Range: 2-11 %) 4.6 (Ref Range: 2-11 %) Eosinophils Percent Auto 3.2 (Ref Range: 0-4 %) 3.3 (Ref Range: 0-4 %) 4.7?H (Ref Range: 0-4 %) Basophils Percent Auto 0.7 (Ref Range: 0-2 %) 0.6 (Ref Range: 0-2 %) 0.6 (Ref Range: 0-2 %) NRBC Pct Auto 0.0 (Ref Range: 0.0-0.2 /100WBC) 0.0 (Ref Range: 0.0-0.2 /100WBC) 0.0 (Ref Range: 0.0-0.2 /100WBC) Neutrophils Absolute Auto 1.9?L (Ref Range: 2.0-8.3 x10*3/uL) 1.8?L (Ref Range: 2.0-8.3 x10*3/uL) 1.8?L (Ref Range: 2.0-8.3 x10*3/uL) Imm Gran Abs Auto 0.02 (Ref Range: 0.00-0.03 X10*3/uL) 0.02 (Ref Range: 0.00-0.03 X10*3/uL) 0.03 (Ref Range: 0.00-0.03 X10*3/uL) Lymphocytes Absolute Auto 11.4?H (Ref Range: 1.2-4.9 X10*3/uL) 11.3?H (Ref Range: 1.2-4.9 X10*3/uL) 14.5?H (Ref Range: 1.2-4.9 X10*3/uL) Monocytes Absolute Auto 0.8 (Ref Range: 0.1-1.2 X10*3/uL) 0.8 (Ref Range: 0.1-1.2 X10*3/uL) 0.8 (Ref Range: 0.1-1.2 X10*3/uL) Eosinophils Absolute Auto 0.5?H (Ref Range: 0.0-0.4 X10*3/uL) 0.5?H (Ref Range: 0.0-0.4 X10*3/uL) 0.9?H (Ref Range: 0.0-0.4 X10*3/uL) Basophils Absolute Auto [...] Date 04/15/2024 10/10/2022 12/13/2020 Beta-2 Microglobulin, Serum 2.91?A (Ref Range: < OR = 2.51 mg/L) 2.68?A (Ref Range: < OR = 2.51 mg/L) 2.09 (Ref Range: < OR = 2.51 mg/L) * Examination: ???General Examination: ?GENERAL APPEARANCE:?pleasant, well nourished, well developed, in no acute distress, calm and relaxed, overweight, woman.?HEAD:?atraumatic, normocephalic.?EYES:?eomi, perrla, anicteric, conjugate.?EARS:?normal.?NOSE:?septum intact.?ORAL CAVITY:?normal, unremarkable.?NECK/THYROID:?no jugular venous distention, no carotid bruit, thyroid normal.?LYMPH NODES:?no enlarged lymph nodes,spleen normal.?SKIN:?no suspicious lesions, anicteric.?HEART:?no clicks, gallops, murmurs, or rubs, regular rhythm, S1, S2 normal, no s3, or vascular bruits.?LUNGS:?clear to auscultation .?BREASTS:?not examined.?ABDOMEN:?bowel sounds normal, no ascites, no organomegaly, no mass.?RECTAL EXAM:?not examined.?MUSCULOSKELETAL:?extremities unremarkable, no clubbing, cyanosis or edema.?PERIPHERAL PULSES:?normal.?NEUROLOGIC:?alert and oriented, cranial nerves 2-12 grossly intact, deep tendon reflexes 2+ symmetrical, motor strength normal upper and lower extremities, sensory exam intact.?PSYCH:?alert, oriented.? Assessment: * Assessment: 1.?Chronic lymphocytic leuke rico - C91.10 (Primary)???Notes :The disease has continued to pursue an indolent course with no sign of progression.? He remains in an early stage was only lymphocytosis.? No treatment is needed.???2.?Overweight - E66.3???Notes :Her body mass index is 28.? She has remained stable.? We have discussed diet and nutrition and weight reduction strategies today.???3.?Mixed hyperlipidemia - E78.2???Notes :Her lipids have been stable.? I have recommended aggressive weight loss and a diet low in animal fat.???4.?Tobacco dependence - F17.200???Notes :I recommended smoking cessation and made her aware of the smoking cessation programs at the local hospital. We spent significant time today discussing her cardiovascular risk factors.? We have discussed Takes for smoking cessation at length.? She will consider taking medication.??? Plan: * Treatment: 2.?Overweight?LAB: PROFILE, RANDOM (COMPREHENSIVE METABOLIC) ?LAB: LDH ?LAB: SED RATE (ESR) ?LAB: CBC WITH AUTO DIFF ?LAB: Beta-2 Microglobulin, Serum 3.?Mixed hyperlipidemia?LAB: PROFILE, RANDOM (COMPREHENSIVE METABOLIC) ?LAB: LDH ?LAB: SED RATE (ESR) ?LAB: CBC WITH AUTO DIFF ?LAB: Beta-2 Microglobulin, Serum 4.?Others? Continue Famotidine Tablet, 40 MG, 1 tablet at bedtime, Orally, Once a day;?Continue Flonase Allergy Relief Suspension, 50 MCG/ACT, 1 spray in each nostril, Nasally, Once a day;?Continue hydroCHLOROthiazide Tablet, 25 MG, 1 tablet in the morning, Orally, Once a day;?Continue Ibuprofen Tablet, 200 MG, 1 tablet with food or milk as needed, Orally, Three times a day;?Continue Lisinopril Tablet, 40 MG, 1 tablet, Orally, Once a day;?Continue Metoprolol Succinate ER Tablet Extended Release 24 Hour, 50 MG, 1 tablet, Orally, Once a day;?Continue Rosuvastatin Calcium Tablet, 20 MG, 1 tablet, Orally, Once a day.?? * Procedure Codes:? * Preventive Medicine:? ??Counseling:?Care goal follow-up plan:?Counseling for abnormal BMI given?Yes ?Above Normal BMI Follow-up?Dietary management education, guidance, and counseling, Dietary needs education ?Smoking/Tobacco Use?Patient counseled on the dangers of tobacco use and urged to quit.?04/24/2024 ?Patient Lifestyle Goals?Patient wants to quit ?Treatment Goals?Set a quit date, Cut down by 1 cigarette a week ?Barriers?Social smoker, Stress ?Self-Management Plan?Make a plan to cut down number of cigarettes over time and set a date to work towards quitting * Follow Up:?6 Months (Reason: OV) * Images: * Sign off status: Completed true * Provider:?Mamadou Rodriguez MD Date:?09/2023 Generated for Sylvia delaney/Jose/eTransmitting on:?12/31/2024 07:28 AM EDT History and Physical Notes * HPI (History of Present Illness) Category Sub-Category Detail Notes COVID-19 Screening Questions Have you had any new onset fever, chills, cough, congestion, sore throat, shortness of breath, muscle aches?: No Have you been exposed to the virus withi n the last 10 days?: No Have you travelled internationally in [facility] last 10 days?: No Have you been [...]
[2024-12-31 09:07] LABS: Alanine Aminotransferase 26 U/L (0-31); Albumin Level 4.6 g/dL (3.5-5.0); Alkaline Phosphatase 56 U/L (39-117); Anion Gap 12 (12-20); Aspartate Amino Transferase 29 U/L (5-31); Bilirubin Total 0.6 mg/dL (0.0-1.0); Blood Urea Nitrogen 29 mg/dL (9-16); Calcium 9.5 mg/dL (8.4-10.2); Carbon Dioxide 27 mmol/L (22-29); Chloride 107 mmol/L (96-108); Cholesterol 210 mg/dL (<200); Estimated Glomerular Filt Rate 42; Glucose Random 99 mg/dL (60-115); HDL Cholesterol 47 mg/dL (>40); LDL Cholesterol Calculated 120 mg/dL (<100); Potassium 4.1 mmol/L (3.3-5.1); Sodium 142 mmol/L (135-145); Total Protein 7.2 g/dL (6.5-8.0); Triglycerides 216 mg/dL (<150)
== END 2024-12-31 07:26 | disposition home or self-care (01) ==
LOC: HO.LAB 07:25
PROVIDERS: PCP Internal Medicine; Visit Provider Internal Medicine
DX: E78.00 Pure hypercholesterolemia, unspecified (principal); I10 Essential (primary) hypertension; J44.9 Chronic obstructive pulmonary disease, unspecified; R07.89 Other chest pain
CPT/HCPCS: 36415; 80053; 80061

== ENCOUNTER 2025-02-09 10:42 | Outpatient (AMB) | payer MEDICARE, SELFPAY ==
--- OUTSIDE RECORDS SUMMARY | 2024-04-24 06:45 | XMS_ITS ---
Author Organization Mamadou Rodriguez III, MD Address [address] [place] [address] [place] [address] Care Team Providers Care Ship Scraper Name Role Phone Jeniffer COLINDRES, [facility] Primary Care Provider Mamadou Freeman Unavailable [phone] Allergies Allergen (clinical drug ingredient) Drug/Non Drug [...] Date Provider Diagnosis Mamadou Rodriguez III, MD [address] [place] [address] DR ARENAS CRUZITO, [place] [address] 04/24/2024 Mamadou Rodriguez Chronic lymphocytic leukemia C91.10 [...] OV Provider Name:Mamadou Rodriguez, 04/30/2025 11:00:00 AM, [address] [place], [place] [address]JOSE MIGUEL, [place], [address], Progress Notes * Clementina SCHUMACHERaDOB:1944 (78 yo F)Acc No.[id number]:04/24/2024 Progress Notes Patient: Anabella GOMES Provider: Loy Rodriguez MD :1945 A ge:78 Y S ex:Female Date:04/24/2024 Address:[address] [place] [address] DA MORENO [id number] Pcp:Angela Swift MD Subjective: * Chief Complaints: [...] urrent non-smoker S he was born in [place] and came to [facility] at the age of 33. She is with no children. She lives in [facility]. 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 Her only exposures were [...] Date: 1 Generated for Sylvia delaney/Jose/eTransmitting on: 0 02/09/2025 11:45 AM EDT History and Physical Notes * [...]
--- NOTE | 2025-02-09 10:46 | A.OFFVIS_ITS ---
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 The chest pain is described as a burning sensation occurring intermittently, primarily during physical activity such as walking 2000 steps daily. The symptoms have been present intermittently for several years, reportedly worsening during the spring and in specific weather conditions such as humidity and cold. The patient associates the onset of symptoms with receiving a COVID-19 vaccination years ago, although the symptoms are not constant and resolve quickly without rest. She denies any history of heart problems, including heart attacks or stents, and reports no need to stop activities when symptoms occur. The patient is currently on medications for blood pressure and cholesterol management. [facility] Medical History (Updated 02/09/25 @ 11:09 by Gabriel Estrada MD) Asthma Family History (Updated 02/09/25 @ 10:59 by Ameena Alarcon) Mother No problems noted. Father No problems noted. Social History (Updated 02/09/25 @ 10:59 by Ameena Alarcon) Alcohol intake: former Patient Tobacco Use Status: Former Tobacco user Review of Systems Const Denies weakness ENT Denies dizziness Card Reports chest pain, Denies chest pain with activity, Denies syncope, Denies rapid heart rate, Denies pedal edema, Denies edema, Denies leg edema, Denies lightheadedness, Reports palpitations, Reports dyspnea, Denies dyspnea on exertion and Denies orthopnea Resp Denies cough, Reports dyspnea and Denies dyspnea on exertion GI Denies hematochezia and Denies change in stool character Musc Denies abnormal gait, Denies muscle cramps, Denies muscle weakness, Denies numbness, Denies radiating pain into limb and Denies tingling Neuro Denies abnormal gait, Denies dizziness, Denies syncope, Denies numbness, Denies tingling and Denies weakness Endo Reports palpitations Physical Exam Vital Signs: Last Vital Signs Pulse 59 02/09/25 10:52 BP 120/68 02/09/25 10:52 BMI result Body Mass Index 26.0 Const General: comfortable and no acute distress Orientation/consciousness: patient oriented x3 HEENT Other: Unremarkable Head: Yes normal to inspection Neck Neck: Yes normal visual inspection Chest Chest palpation & inspection: normal inspection of the chest Resp Auscultation: clear to auscultation bilaterally Cardio Palpation: normal PMI Heart sounds: S1 normal heart sound present, S2 normal heart sound present, no gallops, no murmurs and no rubs GI Palpation (GI): Soft to palpation Back/Spine/Pelvis Other: unremarkable Skin General skin exam: no rashes or lesions noted Neuro General: patient oriented x3 Extrem General: Yes normal to inspection Psych Mental Status: mental status grossly normal Office Procedures EKG Details: EKG with sinus rhythm at 59/Min; no ischemic changes; [place] [id number], Complete Assessment & Plan Assessment & Plan (1) Precordial chest pain: Code(s): R07.2 - Precordial pain Category: Medical Plan: The plan includes conducting a cardiac ultrasound to assess heart function and a stress test to evaluate the patient's response to physical exertion. rrangements will be made to ensure they are completed within next few weeks. Plan Discussion Notes I discussed with the patient the need for a cardiac ultrasound and stress test to further evaluate her symptoms of chest pain and dyspnea on exertion. We talked about the importance of these tests in understanding her heart function and ensuring her symptoms are not indicative of a more serious condition. I also explained the process of obtaining insurance approval and the timeline for completing these tests within four weeks. Patient was informed and verbally consented to the use of an ambient scribe for clinic note documentation during this visit. Orders: Orders CA echo transthoracic complete Today R07.2 - Precordial pain NM cardiolite stress test Today R07.2 - Precordial pain CA stress test Today R07.2 - Precordial pain Patient Instructions: - Schedule and complete the cardiac ultrasound and stress test. - Monitor symptoms and report any worsening or new symptoms immediately. Coding Level of Care Code New Pt Level 4 (77986) Complex EM visit Add On G2211 Diagnoses Precordial chest pain R07.2 CPT Codes EKG - CPT: 47260-[id number], Complete ([id number])
[2025-02-09 10:52] VITALS: BP 120/68; PULSE 59; BMI 26.0
== END 2025-02-09 11:46 | disposition home or self-care (01) ==
LOC: HO.HCS 10:43
PROVIDERS: PCP Internal Medicine; Visit Provider Internal Medicine
DX: R07.2 Precordial pain (principal)
CPT/HCPCS: 93010; 99204; G2211

== ENCOUNTER → 2025-02-09 10:42 | Outpatient (BNVA) | payer MEDICARE, SELFPAY | PROVIDERS: PCP Internal Medicine; Visit Provider Internal Medicine | DX: R07.2 Precordial pain (principal); R06.09 Other forms of dyspnea | CPT/HCPCS: 93005; 99202 ==

== ENCOUNTER → 2025-03-12 13:43 | Outpatient (REF) | payer MEDICARE, SELFPAY ==
--- OUTSIDE RECORDS SUMMARY | 2024-04-24 06:45 | XMS_ITS ---
Author Organization Mamadou Rodriguez III, MD Address [address] [place] [address] [place] [address] Care Team Providers Care Surgical Dental Assistant Name Role Phone Jeniffer COLIDNRES, [facility] Primary Care Provider Mamadou Freeman Unavailable [phone] Allergies Allergen (clinical drug ingredient) Drug/Non Drug [...] Date Provider Diagnosis Mamadou Rodriguez III, MD [address] [place] [address] DR ARENAS CRUZITO, [place] [address] 04/24/2024 Mamadou Rodriguez Chronic lymphocytic leukemia C91.10 [...] OV Provider Name:Mamadou Rodriguez, 04/30/2025 11:00:00 AM, [address] [place], [place] [address]JOSE MIGUEL, [place], [address], Progress Notes * Clementina SCHUMACHERaDOB:1944 (78 yo F)Acc No.[id number]:04/24/2024 Progress Notes Patient: Anabella GOMES Provider: Loy Rodriguez MD :1945 A ge:78 Y S ex:Female Date:04/24/2024 Address:[address] [place] [address] DA MORENO [id number] Pcp:Angela Swift MD Subjective: * Chief Complaints: [...] was born in [place] and came to [facility] at the age of 33. She is with no children. She lives in [facility]. 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 Her only exposures were [...] 1 Generated for Sylvia delaney/Jose/eTransmitting on: 0 03/12/2025 01:51 PM EDT History and Physical Notes * [...]
--- NOTE | 2025-03-12 13:46 | CA_ITS ---
Transthoracic Echocardiogram Patient (Last, First, Middle): Anabella Schumacher, Gender: F Date of : 1945 Age: 79 Procedure Date: 03/12/2025 Procedure Type: Transthoracic Echocardiogram Location: OP Height: 167.64 cm Weight: 72.58 kg BSA: 1.82 m2 Heart Rate: bpm BP: 120 / 68 mmHg [place] [employer] Guide: SONIA Referring MD: Gabriel Estrada MD Outside Collector: Oneal Tatum MD Symptoms: R07.2 - Precordial pain Study Quality: Fair ECG Rhythm: Sinus Conclusions: - 1. Normal LV ejection fraction of 65-70% with impaired relaxation filling pattern 2. Calcific aortic and mitral valve changes noted with normal cardiac valvular Dopplers 3. No gross pericardial effusion Findings Left Ventricle Normal left ventricular size, thickness, and systolic function. The visually estimated ejection fraction is between 65-70%. Spectral Doppler is indicative of an impaired relaxation filling pattern. E/E prime ratio is between 8 and 15 consistent with indeterminate filling pressures. Right Ventricle Normal right ventricular cavity size and systolic function. Atria Both atria are normal in size. There is lipomatous hypertrophy of the interatrial septum. Interatrial shunt cannot be excluded. Aortic Valve Normal aortic valve structure and function. There is mild calcification of the aortic valve. There is no aortic valve stenosis. There is no aortic valve regurgitation. Mitral Valve There is mild anterior and posterior mitral leaflet thickening. There is mild anterior mitral annular calcification. Pulmonic Valve The pulmonic valve was not well visualized. Tricuspid Valve The tricuspid valve was not well visualized. Tricuspid regurgitation envelope is inadequate for calculation of right ventricular systolic pressure. Normal right atrial pressure. Great Vessels The pulmonary artery was not well visualized. There is no dilatation of the ascending aorta measuring 3.40 cm. Venous The inferior vena cava is normal in size and collapses greater than 50% with inspiration. Pericardium/Pleural There is no evidence of pericardial effusion. Prior Study Comparison No prior study available for comparison. Measurements 2D Linear Measurements IVSd: 1.04 0.6-0.9/0.6-1.0 cm LVIDd: 4.17 3.9-5.3/4.2-5.9 cm LVIDd Index: 2.29 2.4-3.2/2.2-3.1 cm/m2 LVIDs: 2.69 2.0-3.6 cm LVPWd: 0.82 0.7-1.1 cm LA Diam: 3.00 2.7-3.8/3.0-4.0 cm LAIDs Index: 1.65 1.5-2.3 cm/m2 LV Mass: 152.39 67-162/88-224 g LV Mass Index: 83.73 43-95/49-115 g/m2 LVOT Diam: 2.00 3.0+(-)1.3 cm 2D Systolic Function EF 4C: 65.80 >55% EF 2C: 67.70 >55% EF BiP: 66.60 >55% Mitral Valve MV Pk E: 0.81 MV PK A: 0.77 MV Decel Time: 339.00 E/A: 1.10 E'Lateral: 6.96 E'Medial: 4.46 E/E' Med: 18.20 E/E' Lat: 11.60 PHT: 99.00 MVA PHT: 2.22 Decel Bonner: 2.39 Aortic Valve AoV Pk Misha: 1.24 AoV Mn Misha: 0.83 AoV VTI: 0.31 AoV Pk Grad: 6.00 Aov Mn Grad: 3.00 ANNELIESE Cont.VTI: 2.96 LVOT LVOT Pk Misha: 1.19 LVOT Mn Misha: 0.76 LVOT VTI: 0.29 LVOT Pk Grad: 6.00 LVOT Mn Grad: 3.00 LVOT Diam: 2.00 LVOT Area: 3.14 Diastolic Function MV Pk E: 0.81 MV Pk A: 0.77 E/A: 1.10 E'Medial: 4.46 E/E' Med: 18.20 E' Laterial: 6.96 E/E' Lat: 11.60 Right Ventricle TAPSE (mm): 23.40 TVS' Misha: 11.00 Tricuspid Valve RA Press: 3.00 Great Vessels Aorta Sinus of Valsalva: 3.16 2.0-3.5 cm Ao Asc: 3.40 2.1-3.4 cm Updated in Other Vendor System with Status of Final Oneal Tatum MD electronically signed on 03/13/2025 5:29:26 PM with status of Final
== END ==
LOC: HO.CARD 13:43
PROVIDERS: PCP Internal Medicine; Visit Provider Internal Medicine
DX: R07.2 Precordial pain (principal)
CPT/HCPCS: 93306

== ENCOUNTER → 2025-03-12 13:46 | Outpatient (BNV) | payer MEDICARE, SELFPAY | PROVIDERS: PCP Internal Medicine; Visit Provider Internal Medicine Cardiovascular Disease | DX: I34.81 Nonrheumatic mitral (valve) annulus calcification (principal); I35.8 Other nonrheumatic aortic valve disorders | CPT/HCPCS: 93306 ==

== ENCOUNTER → 2025-03-16 10:46 | Outpatient (REF) | payer MEDICARE, SELFPAY ==
--- OUTSIDE RECORDS SUMMARY | 2024-04-24 06:45 | XMS_ITS ---
Author Organization Mamadou Rodriguez III, MD Address [address] [facility] [place] [address] Care Team Providers Care Fitting Supervisor Name Role Phone Jeniffer COLINDRES, [facility] Primary Care Provider Mamadou Freeman Unavailable [phone] Allergies Allergen (clinical drug ingredient) Drug/Non Drug [...] Date Provider Diagnosis Mamadou Rodriguez III, MD [address] [place] [address] DR ARENAS CRUZITO, [place] [address] 04/24/2024 Mamadou Rodriguez Chronic lymphocytic leukemia C91.10 [...] Up: 6 Months, Reason: OV Provider Name:Mamadou Rodrgiuez, 04/30/2025 11:00:00 AM, [address] [place], [place] [address]JOSE MIGUEL, [place], [address], Progress Notes * Clementina SCHUMACHERaDOB:1944 (78 yo F)Acc No.[id number]:04/24/2024 Progress Notes Patient: Anabella GOMES Provider: Loy Rodriguez MD :1945 A ge:78 Y S ex:Female Date:04/24/2024 Address:[address] [place] [address] DA MORENO [id number] Pcp:Angela Swift MD Subjective: * Chief Complaints: [...] was born in [place] and came to [facility] at the age of 33. She is with no children. She lives in [facility]. 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 Her only exposures were [...] 1 Generated for Sylvia delaney/Jose/eTransmitting on: 0 03/16/2025 12:00 PM EDT History and Physical Notes * [...]
--- NOTE | 2025-03-16 10:49 | CA_ITS ---
Acquisition Time: 2025-03-16 10:58:27 Total Exercise Time: 00:04:30 Test Indications: CP, SOB Medications: SEE H&P Protocol: MIGUEL Max HR: 110 BPM 77% of Pred: 142 BPM Max BP: 120/60 mmHG Max Work Load: 4.8 METS Exercise stress test with exercise 4 mins 30 secs of Miguel Protocol at reduced speed of 1.7mph, achieving 76% MPHR, requesting to stop due to feeling fatigued and sOB, no chest pain, with isolated PVCs, with normotensive response to exercise. Without any EKG changes at achieved workload. In recovery, pt feeling back to baseline. Echo images obatined by tech at rest and post peak exercise. Definity contrast utilized. Test reviewed with Dr. Estrada. Referred By: Gabriel Estrada Electronically Signed By: Sony Martínez
== END ==
LOC: HO.CARD 10:46
PROVIDERS: PCP Internal Medicine; Visit Provider Internal Medicine
DX: R07.2 Precordial pain (principal)
CPT/HCPCS: 93350; Q9957

== ENCOUNTER → 2025-03-16 10:49 | Outpatient (BNV) | payer MEDICARE, SELFPAY | PROVIDERS: PCP Internal Medicine | DX: R06.02 Shortness of breath (principal); I49.3 Ventricular premature depolarization | CPT/HCPCS: 93016; 93018; 93350; 93352 ==

== ENCOUNTER 2025-03-31 07:19 | Outpatient (REF) | payer MEDICARE, SELFPAY ==
--- OUTSIDE RECORDS SUMMARY | 2023-10-24 07:00 | XMS_ITS ---
Author Organization Mamadou Rodriguez III, MD Address [address] [place] [address] Care Team Providers Care Truck Shop Supervisor Name Role Phone Jeniffer COLINDRES, [facility] Primary Care Provider Mamadou Freeman Unavailable [phone] Allergies Allergen (clinical drug ingredient) Drug/Non Drug [...] Date Provider Diagnosis Mamadou Rodriguez III, MD [address] [place] [address] DR BAIRESELENA, IRINA [id number] 10/24/2023 Mamadou Rodriguez Chronic lymphocytic leukemia C91.10 [...] 6 Months, Reason: OV Provider Name:Mamadou Rodriguez, 04/30/2025 11:00:00 AM, [address] [place] [address] [place], [address], Progress Notes * Clementina SCHUMACHERaDOB:1944 (78 yo F)Acc No.[id number]:10/24/2023 Progress Notes Patient: Anabella Styles Provider: Loy Rodriguez MD :1945 A ge:78 Y S ex:Female Date:10/24/2023 Address:[address] [place], [place] [address]DA [id number] Pcp:Angela Swift MD Subjective: * Chief Complaints: [...] urrent non-smoker S he was born in [place] and came to [facility] at the age of 33. She is with no children. She lives in [facility]. 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 Her only exposures were [...] U/L) 189 (Ref Range: 122-220 U/L) ???Lab:Comprehensive [place]. Panel Fast (Order Date - 10/16/2023) (Collection Date - 10/16/2023)?ValueReference Range?Sozgks188310-120 - mmol/L ?Bilirubin Total0.50.0-1.0 - mg/dL?Aspartate Amino Vicmbesyvlg183- 31 - U/L?Alanine Bjkiopkpxxcuadix67D4-12 - U/L?Total Protein7.2 6.5-8.0 - g/dL?Albumin Level4.23.5-5.0 - g/dL?Alkaline Phosphatase 6439-117 - U/L?Potassium3.93.3-5.1 - mmol/L?Svwlllyt30620-290 - mmol/L?Carbon Kgphepi3802-27 - mmol/L?Anion Ipk46V25-60 - ?Blood Urea Waeqkqzq02C8-97 - mg/dL?Creatinine0.990.5-1.4 - mg/dL ?Estimated Glomerular Filt Rate54-?Glucose Nkiaavu156L17-09 - mg/dL?Calcium9.58.4-10.2 - mg/dL * Lab:Erythrocyte Sedimentatio [...] - 10/16/2023) (Collection Date - 10/16/2023) ?ValueReference Range?Lwrgofeztyzqp418B<150 - mg/dL ?Vlzspdrscof158X<200 - mg/dL?LDL Cholesterol Shgjncfosc927E<100 - mg/dL?HDL Lhyrubharaw53>40 - mg/dL * Examination: G eneral Examination: [...] MD Date: 0 10/24/2023 Generated for Sylvia delaney/Jose/Weston on: 0 03/31/2025 07:22 AM EDT History and Physical Notes * HPI [...]
--- OUTSIDE RECORDS SUMMARY | 2024-04-24 06:45 | XMS_ITS ---
Author Organization Mamadou Rodriguez III, MD Address [address] [facility] [place] [address] Care Team Providers Care Minilab Operator Name Role Phone Jeniffer COLINDRES, [facility] Primary Care Provider Mamadou Freeman Unavailable [phone] Allergies Allergen (clinical drug ingredient) Drug/Non Drug [...] Date Provider Diagnosis Mamadou Rodriguez III, MD [address] [place] [address] DR [place]NAS CRUZITO, [place] [address] 04/24/2024 Mamadou Rodriguez Chronic lymphocytic leukemia C91.10 [...] OV Provider Name:Mamadou Rodriguez, 04/30/2025 11:00:00 AM, [address] [place], [place] [address]JOSE MIGUEL, [place], [address], Progress Notes * Clementina SCHUMACHERaDOB:1944 (78 yo F)Acc No.[id number]:04/24/2024 Progress Notes Patient: Anabella GOMES Provider: Loy Rodriguez MD :1945 A ge:78 Y S ex:Female Date:04/24/2024 Address:[address] [place] [address] DA MORENO [id number] Pcp:Angela Swift MD Subjective: * Chief Complaints: [...] urrent non-smoker S he was born in [place] and came to [facility] at the age of 33. She is with no children. She lives in [facility]. 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 Her only exposures were [...] 1 Generated for Sylvia delaney/Jose/eTransmitting on: 0 03/31/2025 07:22 AM EDT History [...]
--- OUTSIDE RECORDS SUMMARY | 2024-10-23 06:30 | XMS_ITS ---
Author Organization Mamadou Rodriguez III, MD Address [address] [place] [address] Care Team Providers Care Top Lift Compressor Name Role Phone Jeniffer COLINDRES, [facility] Primary Care Provider Mamadou Freeman Unavailable [phone] Allergies Allergen (clinical drug ingredient) Drug/Non Drug [...] Provider Diagnosis Mamadou Rodriguez III, MD [address] [place] [address] DR [place], [place] [address] 10/23/2024 Mamadou Rodriguez Chronic lymphocytic leukemia C91.10 ; [...] OV Provider Name:Mamadou Rodriguez, 04/30/2025 11:00:00 AM, [address] [place], [place] [address]JOSE [place]EL [place], [phone], Progress Notes * Clementina SCHUMACHERaDOB:1944 (79 yo F)Acc No.[id number]:10/23/2024 Progress Notes Patient: Anabella GOMES Provider: Loy Rodriguez MD :1945 A ge:79 Y S ex:Female Date:10/23/2024 Address:[address] [place], [place] [address]DA [id number] Pcp:Angela Swift MD Subjective: * Chief Complaints: [...] urrent smoker S he was born in [place] and came to [facility] at the age of 33. She is with no children. She lives in [facility]. 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 Her only exposures were [...] Rodriguez MD Date: 0 10/23/2024 Generated for Nildai rhett/Jose/Románransmitting on: 0 03/31/2025 07:22 AM EDT History [...]
--- OUTSIDE RECORDS SUMMARY | 2025-03-31 07:23 | XMS_ITS | Patient Health Record ---
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 Primary Care Provider Mamadou Freeman Unavailable [phone] Allergies Allergen (clinical drug ingredient) Drug/Non Drug Allergy documented on EMR Reaction Allergy Type Onset Date Status Penicillin Unknown Drug Allergy Active hydrochlorothiazide Hydrochlorothiazide Unknown Drug Aller gy Active atorvastatin Atorvastatin Calcium Unknown Drug Allergy Active aspirin Aspirin Unknown Drug Allergy Active Results Component Value Reference Range Notes Complete Blood Count Auto Di ff Reviewed date:04/16/2024 06:33:49 AM Interpretation: Performing Lab:[facility], [address] [place] [phone] Notes/Report: White Blood Count 14.7 4.8-10.8 X10*3/uL Red Blood Count 4.38 4.20-5.50 X10*6/uL Hemoglobin 13.0 12.0-16.0 g/dl Hematocrit 39.2 37.0-47.0 % Mean Corpuscular Volume 89.5 80.0-98.0 fL Mean Corpuscular Hemoglobin 29.7 27.0-33.0 pg Mean Corpuscular HGB Conc 33.2 31.0-35.0 g/dl Red Cell Distribution Width 13.2 11.0-16.0 % Platelet Count 169 160-400 X10*3/uL Mean Platelet Volume 10.6 9.4-12.3 fL Neutrophils Percent Auto 12.9 45-73 % Imm Gran Pct Auto 0.1 0.0-0.4 % Lymphocytes Percent Auto 77.8 20-40 % Monocytes Percent Auto 5.3 2-11 % Eosinophils Percent Auto 3.2 0-4 % Basophils Percent Auto 0.7 0-2 % NRBC Pct Auto 0.0 0.0-0.2 /100WBC Neutrophils Absolute Auto 1.9 2.0-8.3 x10*3/u L Imm Gran Abs Auto 0.02 0.00-0.03 X10*3/uL Lymphocytes Absolute Auto 11.4 1.2-4.9 X10*3/u L Monocytes Absolute Auto 0.8 0.1-1.2 X10*3/uL Eosinophils Absolute Auto 0.5 0.0-0.4 X10*3/u L Basophils Absolute Auto 0.1 0.0-0.2 X10*3/uL NRBC Abs Auto 0.000 0.0-0.012 X10*3/uL White Blood Count 14.7 4.8-10.8 X10*3/uL Red Blood Count 4.38 4.20-5.50 X10*6/uL Hemoglobin 13.0 12.0-16.0 g/dl Hematocrit 39.2 37.0-47.0 % Mean Corpuscular Volume 89.5 80.0-98.0 fL Mean Corpuscular Hemoglobin 29.7 27.0-33.0 pg Mean Corpuscular HGB Conc 33.2 31.0-35.0 g/dl Red Cell Distribution Width 13.2 11.0-16.0 % Platelet Count 169 160-400 X10*3/uL Mean Platelet Volume 10.6 9.4-12.3 fL Neutrophils Percent Auto 12.9 45-73 % Imm Gran Pct Auto 0.1 0.0-0.4 % Lymphocytes Percent Auto 77.8 20-40 % Monocytes Percent Auto 5.3 2-11 % Eosinophils Percent Auto 3.2 0-4 % Basophils Percent Auto 0.7 0-2 % NRBC Pct Auto 0.0 0.0-0.2 /100WBC Neutrophils Absolute Auto 1.9 2.0-8.3 x10*3/u L Imm Gran Abs Auto 0.02 0.00-0.03 X10*3/uL Lymphocytes Absolute Auto 11.4 1.2-4.9 X10*3/u L Monocytes Absolute Auto 0.8 0.1-1.2 X10*3/uL Eosinophils Absolute Auto 0.5 0.0-0.4 X10*3/u L Basophils Absolute Auto 0.1 0.0-0.2 X10*3/uL NRBC Abs Auto 0.000 0.0-0.012 X10*3/uL CORRECTED REPORT CORRECTED REPORT Erythrocyte Sedimentation Ra te Reviewed date:04/16/2024 06:33:49 AM Interpretation: Performing Lab:[address] [phone] Notes/Report: Erythrocyte Sedimentation Rate 8 0-20 MM/HR Patients with polycythemia and many hemoglobin abnormalities may have depressed sed rates whereas patients with anemia may have elevated sed rates. Comprehensive Met. Panel Reviewed date:04/16/2024 06:33:49 AM Interpretation: Performing Lab:[facility], [address] [place] [phone] Notes/Report: Sodium 143 135-145 mmol/L Potassium 4.4 3.3-5.1 mmol/L Chloride 105 96-108 mmol/L Carbon Dioxide 30 22-29 mmol/L Anion Gap 12 12-20 Blood Urea Nitrogen 24 9-16 mg/dL Creatinine 1.20 0.5-1.4 mg/dL Estimated Glomerular Filt Rate 44 NOTE: For -[place] individuals, multiply the result by 1.210. Chronic Kidney Disease: Estimated GFR < 60 mL/min/1.73m2 Severe Kidney Disease: Estimated GFR < 15 mL/min/1.73m2 Glucose Random 110 60-115 mg/dL Calcium 10.2 8.4-10.2 mg/dL Bilirubin Total 0.5 0.0-1.0 mg/dL Aspartate Amino Transferase 24 5-31 U/L Alanine Aminotransferase 24 0-31 U/L Total Protein 7.3 6.5-8.0 g/dL Albumin Level 4.4 3.5-5.0 g/dL Alkaline Phosphatase 64 39-117 U/L Lactate Dehydrogenase Reviewed date:04/16/2024 06:33:49 AM Interpretation: Performing Lab:[facility], [address] [place] [phone] Notes/Report: Lactate Dehydrogenase 202 122-220 U/L Beta-2 Microglobulin, Serum Reviewed date:04/21/2024 05:54:38 AM Interpretation: Performing Lab:[facility], [address] [place] [phone] Notes/Report: Beta-2 Microglobulin, Serum 2.91 < OR = 2.51 mg/L THIS TEST WAS PERFORMED AT: [facility] [address] [place] [phone] PRASHANTH SAMPSON MD SLIDE REVIEW Reviewed date:04/16/2024 06:33:49 AM Interpretation: Performing Lab:[facility], [address] [place] [phone] Notes/Report: SLIDE REVIEW VERIFIED Complete Blood Count Auto Di ff Reviewed date:10/15/2024 08:49:12 AM Interpretation: Performing Lab:[facility], [address] [place] [phone] Notes/Report: White Blood Count 14.8 4.8-10.8 X10*3/uL Red Blood Count 4.37 4.20-5.50 X10*6/uL Hemoglobin 13.0 12.0-16.0 g/dl Hematocrit 39.6 37.0-47.0 % Mean Corpuscular Volume 90.6 80.0-98.0 fL Mean Corpuscular Hemoglobin 29.7 27.0-33.0 pg Mean Corpuscular HGB Conc 32.8 31.0-35.0 g/dl Red Cell Distribution Width 13.2 11.0-16.0 % Platelet Count 179 160-400 X10*3/uL Mean Platelet Volume 10.4 9.4-12.3 fL Neutrophils Percent Auto 14.9 45-73 % Imm Gran Pct Auto 0.2 0.0-0.4 % Lymphocytes Percent Auto 75.7 20-40 % Monocytes Percent Auto 5.0 2-11 % Eosinophils Percent Auto 3.5 0-4 % Basophils Percent Auto 0.7 0-2 % NRBC Pct Auto 0.0 0.0-0.2 /100WBC Neutrophils Absolute Auto 2.2 2.0-8.3 x10*3/u L Imm Gran Abs Auto 0.03 0.00-0.03 X10*3/uL Lymphocytes Absolute Auto 11.2 1.2-4.9 X10*3/u L Monocytes Absolute Auto 0.7 0.1-1.2 X10*3/uL Eosinophils Absolute Auto 0.5 0.0-0.4 X10*3/u L Basophils Absolute Auto 0.1 0.0-0.2 X10*3/uL NRBC Abs Auto 0.000 0.0-0.012 X10*3/uL White Blood Count 14.8 4.8-10.8 X10*3/uL Red Blood Count 4.37 4.20-5.50 X10*6/uL Hemoglobin 13.0 12.0-16.0 g/dl Hematocrit 39.6 37.0-47.0 % Mean Corpuscular Volume 90.6 80.0-98.0 fL Mean Corpuscular Hemoglobin 29.7 27.0-33.0 pg Mean Corpuscular HGB Conc 32.8 31.0-35.0 g/dl Red Cell Distribution Width 13.2 11.0-16.0 % Platelet Count 179 160-400 X10*3/uL Mean Platelet Volume 10.4 9.4-12.3 fL Neutrophils Percent Auto 14.9 45-73 % Imm Gran Pct Auto 0.2 0.0-0.4 % Lymphocytes Percent Auto 75.7 20-40 % Monocytes Percent Auto 5.0 2-11 % Eosinophils Percent Auto 3.5 0-4 % Basophils Percent Auto 0.7 0-2 % NRBC Pct Auto 0.0 0.0-0.2 /100WBC Neutrophils Absolute Auto 2.2 2.0-8.3 x10*3/u L Imm Gran Abs Auto 0.03 0.00-0.03 X10*3/uL Lymphocytes Absolute Auto 11.2 1.2-4.9 X10*3/u L Monocytes Absolute Auto 0.7 0.1-1.2 X10*3/uL Eosinophils Absolute Auto 0.5 0.0-0.4 X10*3/u L Basophils Absolute Auto 0.1 0.0-0.2 X10*3/uL NRBC Abs Auto 0.000 0.0-0.012 X10*3/uL CORRECTED REPORT CORRECTED REPORT Erythrocyte Sedimentation Ra te Reviewed date:10/15/2024 08:49:12 AM Interpretation: Performing Lab:[facility], [address] [place] [phone] Notes/Report: Erythrocyte Sedimentation Rate 10 0-20 MM/HR Patients with polycythemia and many hemoglobin abnormalities may have depressed sed rates whereas patients with anemia may have elevated sed rates. Comprehensive Met. Panel Reviewed date:10/15/2024 08:49:12 AM Interpretation: Performing Lab:[facility], [address] [place] [phone] Notes/Report: Sodium 144 135-145 mmol/L Potassium 4.5 3.3-5.1 mmol/L Chloride 111 96-108 mmol/L Carbon Dioxide 28 22-29 mmol/L Anion Gap 10 12-20 Blood Urea Nitrogen 33 9-16 mg/dL Creatinine 1.15 0.5-1.4 mg/dL Estimated Glomerular Filt Rate 46 Chronic Kidney Disease: Estimated GFR < 60 mL/min/1.73m2 Severe Kidney Disease: Estimated GFR < 15 mL/min/1.73m2 Glucose Random 105 60-115 mg/dL Calcium 9.7 8.4-10.2 mg/dL Bilirubin Total 0.4 0.0-1.0 mg/dL Aspartate Amino Transferase 24 5-31 U/L Alanine Aminotransferase 26 0-31 U/L Total Protein 7.1 6.5-8.0 g/dL Albumin Level 4.3 3.5-5.0 g/dL Alkaline Phosphatase 53 39-117 U/L Lactate Dehydrogenase Reviewed date:10/15/2024 08:49:12 AM Interpretation: Performing Lab:[facility], [address] [place] [phone] Notes/Report: Lactate Dehydrogenase 192 122-220 U/L Beta-2 Microglobulin, Serum Reviewed date:10/20/2024 04:52:46 AM Interpretation: Performing Lab:[facility], [address] [place] [phone] Notes/Report: Beta-2 Microglobulin, Serum 2.48 < OR = 2.51 mg/L THIS TEST WAS PERFORMED AT: [facility] [address] [place] [phone] PRASHANTH SAMPSON MD SLIDE REVIEW Reviewed date:10/15/2024 08:49:12 AM Interpretation: Performing Lab:[facility], [address] [place] [phone] Notes/Report: SLIDE REVIEW VERIFIED Reason For Referral No Information Medications Medication SIG (Take, Route, Frequency, Duration) [...] at bedtime Orally Once a day Active Flonase Allergy Relief 50 MCG/ACT 1 spray in each nostril Nasally Once a day Active hydroCHLOROthiazide 25 MG 1 tablet in morning Orally Once a day Active Social History [...] Additional Findings: Tobacco Non-User Current no n-smoker Alcohol Screen Question Answer Notes Did you have a drink containing alcohol in the p ast year? No Points 0 Interpretation Negative Tobacco Control (Standard) Question Answer Notes Tobacco use: Current smoker Problems Problem Type SNOMED Code ICD Code Onset Dates Problem Status W/U Status Risk Notes Problem 945186735 Overweight (E66.3) Active confirmed Her body mass index is 28. She has remained stable. We have discussed diet and nutrition and weight reduction strategies today. Problem 278146346 Mixed hyperlipidemia (E78.2) Active confirmed She continues o n the rosuvastatin. I recommended she have her lipids checked 2 or 3 times a year. Problem 14973574 Tobacco dependence (F17.200) Active confirmed I recommended smoking cessation and made her aware of the smoking cessation programs at the local hospital. We spent significant time today discussing her cardiovascular risk factors. We have discussed Takes for smoking cessation at length. She will consider taking medication. 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 Problem 06216062 Chronic lymphocytic leukemia (C91.10) Active confirmed The chronic lymphocytic leukemia is stable without change. Observation will continue. Problem 723379563 Chronic GERD (K21.9) Active confirmed Her reflexes well controlled with the current regimen which was continued without change. Problem 200615835 Osteopenia of lumbar spine (M85.88) Active confirmed She has a history of osteopenia. This is being managed by primary care. Vital Signs Heart Rate 60 /min 10/23/2024 Temperature 97.6 degrees Fahrenheit 10/23/2024 Blood pressure diastolic 81 mm Hg 10/23/2024 Height 63 in 10/23/2024 Blood pressure systolic 140 mm Hg 10/23/2024 Weight 165 lbs 10/23/2024 BMI 29.23 kg/m2 10/23/2024 Encounters Encounter Location Date Provider Diagnosis Mamadou Rodriguez III, MD [address] [place] [address] [place] [address] 04/24/2024 Mamadou Rodriguez Chronic lymphocytic leukemia C91.10 ; Overweight E66.3 ; Mixed hyperlipidemia E78.2 and Tobacco dependence F17.200 Mamadou Rodriguez III, MD [address] [place] [address] [place] [phone] 10/23/2024 Mamadou Rodriguez Chronic lymphocytic leukemia C91.10 ; Mixed hyperlipidemia E78.2 ; Chronic GERD K21.9 ; Osteopenia of lumbar spine M85.88 and Tobacco dependence F17.200 Assessments Encounter Date Diagnosis (ICD Code) Assessment Notes Treat ment Notes Treatment Clinical Notes 04/24/2024 Overweight (ICD-10 - E66.3) Her body mass index is 28. She has remained stable. We have discussed diet and nutrition and weight reduction strategies today. 04/24/2024 Chronic lymphocytic leukemia (ICD-10 - C91.10) The disease has continued to pursue an indolent course with no sign of progression. He remains in an early stage was only lymphocytosis. No treatment is needed. 10/23/2024 Mixed hyperlipidemia (ICD-10 - E78.2) She continues on the rosuvastatin. I recommended she have her lipids checked 2 or 3 times a year. 10/23/2024 Chronic lymphocytic leukemia (ICD-10 - C91.10) The chronic lymphocytic leukemia is stable without change. Observation will continue. 04/24/2024 Mixed hyperlipidemia (ICD-10 - E78.2) Her lipids have been stable. I have recommended aggressive weight loss and a diet low in animal fat. 10/23/2024 Chronic GERD (ICD-10 - K21.9) Her reflexes well controlled with the current regimen which was continued without change. 04/24/2024 Tobacco dependence (ICD-10 - F17.200) I recommended smoking cessation and made her aware of the smoking cessation programs at the local hospital. We spent significant time today discussing her cardiovascular risk factors. We have discussed Takes for smoking cessation at length. She will consider taking medication. 10/23/2024 Osteopenia of lumbar spine (ICD-10 - [...] will consider taking medication. Plan Of Treatment Pending Test Test Name Order Date PROFILE, FASTING (COMPREHENSIVE METABOLI C) 04/24/2023 PROFILE, RANDOM (COMPREHENSIVE METABOLIC ) 10/18/2022 PROFILE, RANDOM (COMPREHENSIVE METABOLIC ) 03/28/2022 PROFILE, RANDOM (COMPREHENSIVE METABOLIC ) 12/21/2020 PROFILE, RANDOM (COMPREHENSIVE METABOLIC ) 05/05/2020 PROFILE, RANDOM (COMPREHENSIVE METABOLIC ) 10/23/2024 PROFILE, RANDOM (COMPREHENSIVE METABOLIC ) 04/24/2024 PROFILE, RANDOM (COMPREHENSIVE METABOLIC ) 10/24/2023 PROFILE, RANDOM (COMPREHENSIVE METABOLIC ) 09/20/2020 PROFILE, RANDOM (COMPREHENSIVE METABOLIC ) 02/26/2020 PROFILE, RANDOM (COMPREHENSIVE METABOLIC ) 09/23/2021 PROFILE, RANDOM (COMPREHENSIVE METABOLIC ) 04/19/2021 URIC ACID 02/26/2020 URIC ACID 02/13/2020 LIPID PANEL 04/24/2023 LDH 04/19/2021 LDH 04/24/2023 LDH 10/18/2022 LDH 03/28/2022 LDH 02/13/2020 LDH 12/21/2020 LDH 04/24/2024 LDH 10/24/2023 CBC w DIFF 09/20/2020 CBC w DIFF 09/23/2021 CBC w DIFF 02/26/2020 CBC w DIFF 04/19/2021 CBC w DIFF 04/24/2023 CBC w DIFF 10/18/2022 CBC w DIFF 05/05/2020 CBC w DIFF 03/28/2022 CBC w DIFF 10/23/2024 CBC w DIFF 12/21/2020 SED RATE (ESR) 04/24/2024 SED RATE (ESR) 10/24/2023 SED RATE (ESR) 04/19/2021 SED RATE (ESR) 04/24/2023 SED RATE (ESR) 10/18/2022 LEUKEMIA & LYMPHOMA EVAL (LLE) BLOOD BETA-2 MICROGLOBULIN, SERUM 09/20/2020 BETA-2 MICROGLOBULIN, SERUM 03/28/2022 MAMMOGRAM DIGITAL BILATERAL SCREEN 04/19 CBC WITH AUTO DIFF 04/24/2024 CBC WITH AUTO DIFF 10/24/2023 Beta-2 Microglobulin, Serum 04/24/2024 Beta-2 Microglobulin, Serum 10/24/2023 Next Appt Details Provider Name:Mamadou Rodriguez, 04/30/2025 11:00:00 AM, [address] [place] [address], [place] [address], [place], [phone], Insurance Providers Payer Name Payer Address Payer Phone Subscriber Number Group Number Insured Name Patient Relationship to Insured Coverage Start Date Coverage End Date [employer] PREFERRED [address] [place] [address] [phone] [id number] Anabella Schumacher Self - patient is the insured MEDICARE NGS [address] [place] [phone] [id number] Anabella Schumacher Self - patient is the insured Medical (General) History Medical History History ICD Code Hypertension I10 GERD hyperlipidemia history of herpes zoster osteopenia lymphocytosis Overweight tobacco dependence penicillin allergic Surgical History Surgery Date(Month/Year) none reported
[2025-03-31 07:56] LABS: Hematocrit 37.8 % (37.0-47.0); Hemoglobin 12.2 g/dl (12.0-16.0); Imm Gran Abs Auto 0.03 X10*3/uL (0.00-0.03); Imm Gran Pct Auto 0.2 % (0.0-0.4); Lymphocytes Absolute Auto 10.3 X10*3/uL (1.2-4.9); MANUAL DIFF FLAG SCAN; Mean Corpuscular HGB Conc 32.3 g/dl (31.0-35.0); Mean Corpuscular Hemoglobin 29.0 pg (27.0-33.0); Mean Corpuscular Volume 90.0 fL (80.0-98.0); NRBC Abs Auto 0.000 X10*3/uL (0.0-0.012); NRBC Pct Auto 0.0 /100WBC (0.0-0.2); Platelet Count 162 X10*3/uL (160-400); Red Blood Count 4.20 X10*6/uL (4.20-5.50); SCAN SMEAR FLAG 1; White Blood Count 13.2 X10*3/uL (4.8-10.8)
[2025-03-31 08:24] LABS: Alanine Aminotransferase 23 U/L (0-31); Albumin Level 4.4 g/dL (3.5-5.0); Alkaline Phosphatase 53 U/L (39-117); Anion Gap 13 (12-20); Aspartate Amino Transferase 28 U/L (5-31); Blood Urea Nitrogen 27 mg/dL (9-16); Calcium 9.0 mg/dL (8.4-10.2); Carbon Dioxide 28 mmol/L (22-29); Chloride 107 mmol/L (96-108); Cholesterol 198 mg/dL (<200); Estimated Glomerular Filt Rate 36; HDL Cholesterol 45 mg/dL (>40); Potassium 4.1 mmol/L (3.3-5.1); Sodium 144 mmol/L (135-145); Total Protein 6.8 g/dL (6.5-8.0); Triglycerides 210 mg/dL (<150)
== END 2025-03-31 07:20 | disposition home or self-care (01) ==
LOC: HO.LAB 07:19
PROVIDERS: PCP Internal Medicine; Visit Provider Internal Medicine
DX: I10 Essential (primary) hypertension (principal); E78.00 Pure hypercholesterolemia, unspecified; Z68.28 Body mass index [BMI] 28.0-28.9, adult
CPT/HCPCS: 36415; 80053; 80061; 85025

== ENCOUNTER 2025-04-08 13:31 | Outpatient (AMB) | payer MEDICARE, SELFPAY ==
--- OUTSIDE RECORDS SUMMARY | 2023-10-24 07:00 | XMS_ITS ---
Author Organization Mamadou Rodriguez III, MD Address [address] [place] [address] [place] [address] Care Team Providers Care Flying Instructor Name Role Phone Jeniffer COLINDRES, [facility] Primary Care Provider Mamadou Freeman Unavailable [phone] Allergies Allergen (clinical drug ingredient) Drug/Non Drug Allergy documented on EMR Reaction Allergy Type Onset Date Status atorvastatin Atorvastatin Calcium Unknown Drug Allergy Active aspirin Aspirin Unknown Drug Allergy Active Penicillin Unknown Drug Allergy Active hydrochlorothiazide Hydrochlorothiazide Unknown Drug Aller gy Active REASON FOR VISIT Chronic lymphocytic leukemia, GERD, Hyperlipidemia, Osteopenia, Tobacco dependence Medications Medication SIG (Take, Route, Frequency, Duration) Notes Start Date End Date Status Metoprolol Succinate ER 50 MG 1 tablet O rally Once a day Active Rosuvastatin Calcium 20 MG 1 tablet Oral ly Once a day Active Flonase Allergy Relief 50 MCG/ACT 1 spray in each nostril Nasally Once a day Active hydroCHLOROthiazide 25 MG 1 tablet in th e morning Orally Once a day Active Famotidine 40 MG 1 tablet at bedtime Orally Once a day Active Ibuprofen 200 MG 1 tablet with food o r milk as needed Orally Three times a day Active Lisinopril 40 MG 1 tablet Orally Once a day Active Social History Tobacco Use: Social History Observation Description Date Details (start date - stop date) Former Smoker NA - NA Sex Assigned At : Social History Observation Description Sex Assigned At Female Tobacco Use/Smoking Question Answer Notes Patient is a former smoker How long has it been since you last smoked? 3-6 months Additional Findings: Tobacco Non-User Current no n-smoker Vital Signs Temperature 98.3 degrees Fahrenheit 10/24/19 24 Blood pressure systolic 129 mm Hg 10/24/19 24 Blood pressure diastolic 66 mm Hg 024 Heart Rate 66 /min 10/24/2023 Height 63 in 10/24/2023 Weight 158 lbs 10/24/2023 BMI 27.99 kg/m2 10/24/2023 Encounters Encounter Location Date Provider Diagnosis Mamadou Rodriguez III, MD [address] [place] [address] DR BAIRESELENA, IRINA [address] 10/24/2023 Mamadou Rodriguez Chronic lymphocytic leukemia C91.10 ; Mixed hyperlipidemia E78.2 ; Overweight E66.3 ; Osteopenia of lumbar spine M85.88 and Tobacco dependence F17.200 Assessments Encounter Date Diagnosis (ICD Code) Assessment Notes Treat ment Notes Treatment Clinical Notes 10/24/2023 Chronic lymphocytic leukemia (ICD-10 - C91.10) Her stage has not progressed. Observation alone is necessary. Follow-up was arranged. 10/24/2023 Mixed hyperlipidemia (ICD-10 - E78.2) Her lipids have been stable. No change in her regimen was necessary today. 10/24/2023 Overweight (ICD-10 - E66.3) Her body mass index is 27. We discussed her weight loss strategy diet and nutrition. We made a plan for her to lose weight at a rate of one half of a pound per week. 10/24/2023 Osteopenia of lumbar spine (ICD-10 - M85.88) She has a history of osteopenia. This is being managed by primary care. 10/24/2023 Tobacco dependence (ICD-10 - F17.200) I recommended smoking cessation and made her aware of the smoking cessation programs at the local hospital. Plan Of Treatment Medication Medication Name Sig Start Date Stop Date Notes Metoprolol Succinate ER 50 MG 1 tablet O rally Once a day Rosuvastatin Calcium 20 MG 1 tablet Oral ly Once a day Flonase Allergy Relief 50 MCG/ACT 1 spra y in each nostril Nasally Once a day hydroCHLOROthiazide 25 MG 1 tablet in th e morning Orally Once a day Famotidine 40 MG 1 tablet at bedtime Orally Once a day Ibuprofen 200 MG 1 tablet with food o r milk as needed Orally Three times a day Lisinopril 40 MG 1 tablet Orally Once a day Pending Test Test Name Order Date PROFILE, RANDOM (COMPREHENSIVE METABOLIC ) 10/24/2023 LDH 10/24/2023 SED RATE (ESR) 10/24/2023 CBC WITH AUTO DIFF 10/24/2023 Beta-2 Microglobulin, Serum 10/24/2023 Next Appt Details Follow Up: 6 Months, Reason: OV Provider Name:Mamadou Rodriguez, 05/19/2025 10:15:00 AM, [address] [place] [address] [place], [phone], Progress Notes * Clementina SCHUMACHERaDOB:1944 (78 yo F)Acc No.[id number]:10/24/2023 Progress Notes Patient: Anabella Styles Provider: Loy Rodriguez MD :1945 A ge:78 Y S ex:Female Date:10/24/2023 Address:[address] [place], [place] [address]DA [phone] Pcp:Angela Swift MD Subjective: * Chief Complaints: * C hronic lymphocytic leukemiaGERDHyperlipidemiaOsteopeniaTobacco dependence * HPI: C OVID-19 Screening: She returns for management of her chronic lymphocytic leukemia which is early stage and has been treated only with observation so far. Her white bloood celll count ttoday has dropped. She has no adenopathy or splenomegaly. Observation was continued. She continues to smoke a package of cigarettes daily. She has had no compression fractures. She has been compliant with all of her medications. Questions H ave you experienced fever, chills, cough, sore throat, shortness of breath, difficulty breathing, muscle aches, loss of taste or smell? N o H ave you been exposed to the virus within the last 10 days? N o H ave you travelled internationally in the last 10 days? N o H ave you been exposed to COVID-19 in the past? Y es * ROS: G eneral/Constitutional: pain o nly normal aches and pains. C hills d enies.?Fatigue a dmits. F ever d enies. E NT: Decreased hearing d enies. R espiratory: Cough d enies. C ardiovascular: Chest pain with exertion d enies. D yspnea on exertion?denies. S hortness of breath d enies. G astrointestinal: Constipation d enies. D ecreased appetite d enies.?Diarrhea d enies. H eartburn d enies. N ausea d enies. R ectal bleeding?denies. V omiting d enies. H ematology: bruising d enies. p etechiae d enies. S wollen glands n one have been noted. G enitourinary: Frequent urination d enies. M usculoskeletal: Muscle aches d enies. P ainful joints d enies. S ciatica d enies. W eakness d enies. S kin: Itching d enies. R leonardo d enies. S kin lesion(s)?denies. N eurologic: Difficulty speaking d enies. D izziness d enies.?Headache d enies. L ow back pain d enies. P sychiatric: Depressed mood d enies. * Medical History: * Surgical History: n one reported * Hospitalization/Major Diagno stic Procedure: D enies Past Hospitalization * Family History: F ather: 90 yrs, Asthma, dementia, hyperlipidemia. M other: 91 yrs, Nephrolithiasis. S iblings: alive. 1 brother(s) , 2 sister(s) - healthy. . Her father suffered from dementia and hyperlipidemia and asthma. Her mother suffered from nephrolithiasis. They both of old age. Her siblings are healthy and well. She is unaware of any family history of lymphoproliferative disease or of inherited malignancies. * Social History: T obacco Use: T obacco Use/Smoking P atient is a f ormer smoker H ow long has it been since you last smoked??3-6 months A dditional Findings: Tobacco Non-User C urrent non-smoker S he was born in [place] and came to [facility] at the age of 33. She is with no children. She lives in [facility]. 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 She does not remember any exposure to benzoin. * Medications: T akingFamotidine 40 MG Tablet 1 tablet at bedtime Orally Once a dayFlonase Allergy Relief 50 MCG/ACT Suspension 1 spray in each nostril Nasally Once a dayhydroCHLOROthiazide 25 MG Tablet 1 tablet in the morning Orally Once a dayIbuprofen 200 MG Tablet 1 tablet with food or milk as needed Orally Three times a dayLisinopril 40 MG Tablet 1 tablet Orally Once a dayMetoprolol Succinate ER 50 MG Tablet Extended Release 24 Hour 1 tablet Orally Once a dayRosuvastatin Calcium 20 MG Tablet 1 tablet Orally Once a dayMedication List reviewed and reconciled with the patientTaking Famotidine 40 MG Tablet 1 tablet at bedtime Orally Once a dayTaking Flonase Allergy Relief 50 MCG/ACT Suspension 1 spray in each nostril Nasally Once a dayTaking hydroCHLOROthiazide 25 MG Tablet 1 tablet in the morning Orally Once a dayTaking Ibuprofen 200 MG Tablet 1 tablet with food or milk as needed Orally Three times a dayTaking Lisinopril 40 MG Tablet 1 tablet Orally Once a dayTaking Metoprolol Succinate ER 50 MG Tablet Extended Release 24 Hour 1 tablet Orally Once a dayTaking Rosuvastatin Calcium 20 MG Tablet 1 tablet Orally Once a dayMedication List reviewed and reconciled with the patient * Allergies: A torvastatin CalciumAspirinPenicillin: AllergyHydrochlorothiazide: Allergyno[Allergies Verified] Objective: * Vitals: H t: 63, Wt:158, BMI:27.99, BP:129/66, HR:66, Temp:98.3, Wt-k.67. * P ast Orders: Lab:Lactate Dehydrogenase * Order Date 10/16/2023 04/17/2023 10/10/2022 Lactate Dehydrogenase 175 (Ref Range: 122-220 U/L) 172 (Ref Range: 122-220 U/L) 189 (Ref Range: 122-220 U/L) ???Lab:Comprehensive [place]. Panel Fast (Order Date - 10/16/2023) (Collection Date - 10/16/2023)?ValueReference Range?[id number] - mmol/L ?Bilirubin Total0.50.0-1.0 - mg/dL?Aspartate Amino Vfqeitjlvmx161- 31 - U/L?Alanine Jiznchcntvquowxb06K4-16 - U/L?Total Protein7.2 6.5-8.0 - g/dL?Albumin Level4.23.5-5.0 - g/dL?Alkaline Phosphatase 6439-117 - U/L?Potassium3.93.3-5.1 - mmol/L?Yvkogqkd08497-911 - mmol/L?Carbon Lnuwebv3279-20 - mmol/L?Anion Paw94U92-87 - ?Blood Urea Aibsbaeu80M6-51 - mg/dL?Creatinine0.990.5-1.4 - mg/dL ?Estimated Glomerular Filt Rate54-?Glucose Pnvaisz723Q58-37 - mg/dL?Calcium9.58.4-10.2 - mg/dL * Lab:Erythrocyte Sedimentatio n Rate * Order Date 10/16/2023 04/17/2023 09/15/2021 Erythrocyte Sedimentation Rate 9 (Ref Range: 0-20 MM/HR) 7 (Ref Range: 0-20 MM/HR) 7 (Ref Range: 0-20 MM/HR) * Lab:Complete Blood Count Aut o Diff * Order Date 10/16/2023 04/17/2023 10/10/2022 White Blood Count 14.5 H (Ref Range: 4.8-10.8 X10*3/uL) 18.1 H (Ref Range: 4.8-10.8 X10*3/uL) 15.8 H (Ref Range: 4.8-10.8 X10*3/uL) Red Blood Count 4.41 (Ref Range: 4.20-5.50 X10*6/uL) 4.85 (Ref Range: 4.20-5.50 X10*6/uL) 4.67 (Ref Range: 4.20-5.50 X10*6/uL) Hemoglobin 13.1 (Ref Range: 12.0-16.0 g/dl) 14.3 (Ref Range: 12.0-16.0 g/dl) 13.8 (Ref Range: 12.0-16.0 g/dl) Hematocrit 39.7 (Ref Range: 37.0-47.0 %) 43.6 (Ref Range: 37.0-47.0 %) 43.1 (Ref Range: 37.0-47.0 %) Mean Corpuscular Volume 90.0 (Ref Range: 80.0-98.0 fL) 89.9 (Ref Range: 80.0-98.0 fL) 92.3 (Ref Range: 80.0-98.0 fL) Mean Corpuscular Hemoglobin 29.7 (Ref Range: 27.0-33.0 pg) 29.5 (Ref Range: 27.0-33.0 pg) 29.6 (Ref Range: 27.0-33.0 pg) Mean Corpuscular HGB Conc 33.0 (Ref Range: 31.0-35.0 g/dl) 32.8 (Ref Range: 31.0-35.0 g/dl) 32.0 (Ref Range: 31.0-35.0 g/dl) Red Cell Distribution Width 13.3 (Ref Range: 11.0-16.0 %) 13.2 (Ref Range: 11.0-16.0 %) 12.6 (Ref Range: 11.0-16.0 %) Platelet Count 196 (Ref Range: 160-400 X10*3/uL) 181 (Ref Range: 160-400 X10*3/uL) 186 (Ref Range: 160-400 X10*3/uL) Mean Platelet Volume 10.5 (Ref Range: 9.4-12.3 fL) 10.3 (Ref Range: 9.4-12.3 fL) 11.1 (Ref Range: 9.4-12.3 fL) Neutrophils Percent Auto 12.6 L (Ref Range: 45-73 %) 10.0 L (Ref Range: 45-73 %) 12.8 L (Ref Range: 45-73 %) Imm Gran Pct Auto 0.1 (Ref Range: 0.0-0.4 %) 0.2 (Ref Range: 0.0-0.4 %) 0.1 (Ref Range: 0.0-0.4 %) Lymphocytes Percent Auto 78.0 H (Ref Range: 20-40 %) 79.9 H (Ref Range: 20-40 %) 77.1 H (Ref Range: 20-40 %) Monocytes Percent Auto 5.4 (Ref Range: 2-11 %) 4.6 (Ref Range: 2-11 %) 5.3 (Ref Range: 2-11 %) Eosinophils Percent Auto 3.3 (Ref Range: 0-4 %) 4.7 H (Ref Range: 0-4 %) 4.1 H (Ref Range: 0-4 %) Basophils Percent Auto 0.6 (Ref Range: 0-2 %) 0.6 (Ref Range: 0-2 %) 0.6 (Ref Range: 0-2 %) NRBC Pct Auto 0.0 (Ref Range: 0.0-0.2 /100WBC) 0.0 (Ref Range: 0.0-0.2 /100WBC) 0.0 (Ref Range: 0.0-0.2 /100WBC) Neutrophils Absolute Auto 1.8 L (Ref Range: 2.0-8.3 x10*3/uL) 1.8 L (Ref Range: 2.0-8.3 x10*3/uL) 2.0 (Ref Range: 2.0-8.3 x10*3/uL) Imm Gran Abs Auto 0.02 (Ref Range: 0.00-0.03 X10*3/uL) 0.03 (Ref Range: 0.00-0.03 X10*3/uL) 0.02 (Ref Range: 0.00-0.03 X10*3/uL) Lymphocytes Absolute Auto 11.3 H (Ref Range: 1.2-4.9 X10*3/uL) 14.5 H (Ref Range: 1.2-4.9 X10*3/uL) 12.2 H (Ref Range: 1.2-4.9 X10*3/uL) Monocytes Absolute Auto 0.8 (Ref Range: 0.1-1.2 X10*3/uL) 0.8 (Ref Range: 0.1-1.2 X10*3/uL) 0.8 (Ref Range: 0.1-1.2 X10*3/uL) Eosinophils Absolute Auto 0.5 H (Ref Range: 0.0-0.4 X10*3/uL) 0.9 H (Ref Range: 0.0-0.4 X10*3/uL) 0.7 H (Ref Range: 0.0-0.4 X10*3/uL) Basophils Absolute Auto 0.1 (Ref Range: 0.0-0.2 X10*3/uL) 0.1 (Ref Range: 0.0-0.2 X10*3/uL) 0.1 (Ref Range: 0.0-0.2 X10*3/uL) NRBC Abs Auto 0.000 (Ref Range: 0.0-0.012 X10*3/uL) 0.000 (Ref Range: 0.0-0.012 X10*3/uL) 0.000 (Ref Range: 0.0-0.012 X10*3/uL) * Lab:SLIDE REVIEW * Order Date 10/16/2023 04/17/2023 10/10/2022 SLIDE REVIEW VERIFIED VERIFIED VERIFIED ???Lab:Lipid Panel (Order Date - 10/16/2023) (Collection Date - 10/16/2023) ?ValueReference Range?Ervonrwplsdqi445J<150 - mg/dL ?Pfwqdlaypml928N<200 - mg/dL?LDL Cholesterol Kuxxoobakj250X<100 - mg/dL?HDL Czyxaqkcdsb92>40 - mg/dL * Examination: G eneral Examination: GENERAL APPEARANCE: p leasant, well nourished, well developed, in no acute distress, calm and relaxed , overweight, woman. HEAD: a traumatic, normocephalic. EYES: e irma, perrla, anicteric, conjugate. EARS: n ormal. NOSE: s eptum intact. ORAL CAVITY: n ormal, unremarkable. NECK/THYROID: n o jugular venous distention, no carotid bruit, thyroid normal. LYMPH NODES: n o enlarged lymph nodes,spleen normal. SKIN: n o suspicious lesions, anicteric. HEART: n o clicks, gallops, murmurs, or rubs, regular rhythm, S1, S2 normal, no s3, or vascular bruits. LUNGS: , diminished breath sounds throughout , no wheezes, rales, rhonchi. BREASTS: n ot examined. ABDOMEN: b owel sounds normal, no ascites, no organomegaly, no mass. RECTAL EXAM: n ot examined. MUSCULOSKELETAL: e xtremities unremarkable, no clubbing, cyanosis or edema. PERIPHERAL PULSES: n ormal. NEUROLOGIC: a lert and oriented, cranial nerves 2-12 grossly intact, deep tendon reflexes 2+ symmetrical, motor strength normal upper and lower extremities, sensory exam intact. PSYCH: a lert, oriented. Assessment: * Assessment: 1. C hronic lymphocytic leukemia - C91.10 (Primary), Her stage has not progressed. Observation alone is necessary. Follow-up was arranged. 2 . M ixed hyperlipidemia - E78.2, Her lipids have been stable. No change in her regimen was necessary today. 3 . O verweight - E66.3, Her body mass index is 27. We discussed her weight loss strategy diet and nutrition. We made a plan for her to lose weight at a rate of one half of a pound per week. 4 . O steopenia of lumbar spine - M85.88, She has a history of osteopenia. This is being managed by primary care. 5 . T obacco dependence - F17.200, I recommended smoking cessation and made her aware of the smoking cessation programs at the local hospital. Plan: * Treatment: 2. M ixed hyperlipidemia L AB: PROFILE, RANDOM (COMPREHENSIVE METABOLIC) L AB: LDH L AB: SED RATE (ESR) L AB: CBC WITH AUTO DIFF L AB: Beta-2 Microglobulin, Serum 3. O verweight L AB: PROFILE, RANDOM (COMPREHENSIVE METABOLIC) L AB: LDH L AB: SED RATE (ESR) L AB: CBC WITH AUTO DIFF L AB: Beta-2 Microglobulin, Serum 4. O thers Continue Famotidine Tablet, 40 MG, 1 tablet at bedtime, Orally, Once a day; C ontinue Flonase Allergy Relief Suspension, 50 MCG/ACT, 1 spray in each nostril, Nasally, Once a day; C ontinue hydroCHLOROthiazide Tablet, 25 MG, 1 tablet in the morning, Orally, Once a day; C ontinue Ibuprofen Tablet, 200 MG, 1 tablet with food or milk as needed, Orally, Three times a day; C ontinue Lisinopril Tablet, 40 MG, 1 tablet, Orally, Once a day; C ontinue Metoprolol Succinate ER Tablet Extended Release 24 Hour, 50 MG, 1 tablet, Orally, Once a day; C ontinue Rosuvastatin Calcium Tablet, 20 MG, 1 tablet, Orally, Once a day. * Procedure Codes: * Preventive Medicine: Counseling: C are goal follow-up plan: Counseling for abnormal BMI given Y es Above Normal BMI Follow-up D ietary management education, guidance, and counseling, Dietary needs education, Exercise promotion: strength training, Exercise promotion: stretching, Feeding regime, Giving encouragement to exercise, Lifestyle education regarding diet, Nutrition / feeding management, Nutrition therapy, Prescribed activity/exercise education, Prescribed diet education, Prescribed dietary intake, Special diet education, Weight monitoring , Intervention, Order not done: Medical or Other reason not done S moking/Tobacco Use Patient counseled on the dangers of tobacco use and urged to quit. 0 10/24/2023 Patient Lifestyle Goals P atient wants to quit Treatment Goals C ut down by 1 cigarette a week, Set a quit date Barriers S tress, Social smoker Self-Management Plan M eulogio a plan to cut down number of cigarettes over time and set a date to work towards quitting * Follow Up: 6 Months (Reason: OV) * Images: * Sign off status: Completed true * Provider: Loy Rodriguez MD Date: 0 10/24/2023 Generated for Sylvia delaney/Jose/Susanitting on: 0 04/08/2025 05:20 PM EDT History and Physical Notes * HPI (History of Present Illness) Category Sub-Category Detail Notes COVID-19 Screening Questions Have you had any new onset fever, chills, cough, congestion, sore throat, shortness of breath, muscle aches?: No Have you been exposed to the virus withi n the last 10 days?: No Have you travelled internationally in last 10 days?: No Have you been exposed to COVID-19 in the past?: Yes Examination Category Sub-Category Detail Notes General Examination GENERAL APPEARANCE: pleasant , well nourished, well developed, in no acute distress, calm and relaxed , overweight, woman HEAD: atraumatic, normocep halic EYES: eomi, perrla, anicte heather, conjugate EARS: normal NOSE: septum intact NECK/THYROID: no jugular venous di stention, no carotid bruit, thyroid normal HEART: no clicks, gallops, murmurs, or rubs, regular rhythm, S1, S2 normal, no s3, or vascular bruits LUNGS: , diminished breath sounds throughout , no wheezes, rales, rhonchi ABDOMEN: bowel sounds normal, no ascites, no organomegaly, no mass NEUROLOGIC: alert and oriented, cranial nerves 2-12 grossly intact, deep tendon reflexes 2+ symmetrical, motor strength normal upper and lower extremities, sensory exam intact SKIN: no suspicious lesion s, anicteric PERIPHERAL PULSES: normal BREASTS: not examined MUSCULOSKELETAL: extremities unremark able, no clubbing, cyanosis or edema LYMPH NODES: no enlarged lymph no caity,spleen normal RECTAL EXAM: not examined PSYCH: alert, oriented ORAL CAVITY: normal, unremarkable
--- OUTSIDE RECORDS SUMMARY | 2024-04-24 06:45 | XMS_ITS ---
Author Organization Mamadou Rodriguez III, MD Address [address] [facility] [place] [address] Care Team Providers Care Search Coordinator Name Role Phone Jeniffer COLINDRES, [facility] Primary Care Provider Mamadou Freeman Unavailable [phone] Allergies Allergen (clinical drug ingredient) Drug/Non Drug [...] Date Provider Diagnosis Mamadou Rodriguez III, MD [address] [place] [address] DR ARENAS CRUZITO, [place] [address] 04/24/2024 Mamadou Rodriguez Chronic lymphocytic leukemia C91.10 [...] OV Provider Name:Mamadou Rodriguez, 05/19/2025 10:15:00 AM, [address] [place], [place] [address]JOSE MIGUEL, [place], [address], Progress Notes * Clementina SCHUMACHERaDOB:1944 (78 yo F)Acc No.[id number]:04/24/2024 Progress Notes Patient: Anabella GOMES Provider: Loy Rodriguez MD :1945 A ge:78 Y S ex:Female Date:04/24/2024 Address:[address] [place] [address] [place] MORENO [id number] Pcp:Angela Swift MD Subjective: * Chief Complaints: [...] urrent non-smoker S he was born in [place] and came to [facility] at the age of 33. She is with no children. She lives in [facility]. 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 Her only exposures were [...] 1 Generated for Sylvia delaney/Jose/eTransmitting on: 0 04/08/2025 05:20 PM EDT History [...]
--- OUTSIDE RECORDS SUMMARY | 2024-10-23 06:30 | XMS_ITS ---
Author Organization Mamadou Rodriguez III, MD Address [address] [place] [address] [place] [address] Care Team Providers Care Purchasing Manager Name Role Phone Jeniffer COLINDRES, [facility] Primary Care Provider Mamadou Freeman Unavailable [phone] Allergies Allergen (clinical drug ingredient) Drug/Non Drug [...] Date Provider Diagnosis Mamadou Rodriguez III, MD [address] [place] [address] [address] [place], [place] [address] 10/23/2024 Mamadou Rodriguez Chronic lymphocytic leukemia C91.10 [...] OV Provider Name:Mamadou Rodriguez, 05/19/2025 10:15:00 AM, [address] [place], [place] [address]JO[place], [phone], Progress Notes * Clementina SCHUMACHERaDOB:1944 (79 yo F)Acc No.[id number]:10/23/2024 Progress Notes Patient: Anabella GOMES Provider: Loy Rodriguez MD :1945 A ge:79 Y S ex:Female Date:10/23/2024 Address:[address] [place], [place] [address]DA [id number] Pcp:Angela Swift MD Subjective: * Chief Complaints: [...] urrent smoker S he was born in [place] and came to [facility] at the age of 33. She is with no children. She lives in [facility]. 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 Her only exposures were [...] 10/23/2024 Generated for Nildai rhett/Jose/Románransmitting on: 0 04/08/2025 05:20 PM EDT History [...]
[2025-04-08 13:55] VITALS: BP 120/64; PULSE 67; BMI 26.3
--- NOTE | 2025-04-08 13:55 | A.OFFVIS_ITS ---
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 Patient was previously seen in the office for ongoing chest discomfort and shortness of breath for which patient underwent a stress test and an echocardiogram. Today, patient is report feeling well overall without any cardiac symptoms of exertional chest pain, shortness of breath, palpitations, dizziness, orthopnea, PND, leg edema, presyncope, or syncope. Patient however does note that he has noticed upon better observation that her chest discomfort his after eating certain kinds of foods such as lasagna. Patient is now on famotidine and is taking Tums which seems to have helped with her symptoms. Patient is otherwise reporting compliance with all her medications. [facility] Medical History Asthma Family History Mother No problems noted. Father No problems noted. Social History Alcohol intake: former Patient Tobacco Use Status: Former Tobacco user Review of Systems Const Denies daytime sleepiness, Denies difficulty sleeping, Denies snoring, Denies stops breathing during sleep and Denies weakness Card Denies chest pain, Denies rapid heart rate, Denies irregular heart rhythm, Denies claudication, Denies leg edema, Denies lightheadedness, Denies palpitations, Denies dyspnea, Reports dyspnea on exertion, Denies orthopnea, Denies paroxysmal nocturnal dyspnea and Denies slow heart rate Resp Denies cough, Denies dyspnea, Reports dyspnea on exertion and Denies snoring GI Reports no additional complaints, Denies hematochezia, Denies change in stool character and Denies dyspepsia Musc Denies abnormal gait, Denies muscle weakness and Denies numbness Neuro Denies abnormal gait, Denies numbness and Denies weakness Endo Denies palpitations Physical Exam Vital Signs: Last Vital Signs Pulse 67 04/08/25 13:55 BP 120/64 04/08/25 13:55 BMI result Body Mass Index 26.3 Const General: cooperative, healthy appearing, comfortable and no acute distress Orientation/consciousness: patient oriented x3 HEENT Head: Yes normal to inspection Neck Neck: Yes normal visual inspection, Yes trachea midline and Yes supple Chest Chest palpation & inspection: normal inspection of the chest Resp Effort & Inspection: normal respiratory effort Auscultation: clear to auscultation bilaterally, no crackles, no rales, no rhonchi and no wheezes Cardio Jugular venous distension: no JVD Palpation: normal PMI Rate: regular rate Rhythm: regular rhythm Heart sounds: S1 normal heart sound present, S2 normal heart sound present, no click, no gallops, no murmurs and no rubs Peripheral pulses: Peripheral pulses 2+ throughout GI Inspection: Yes normal to inspection Palpation (GI): Soft to palpation Auscultation: normal bowel sounds Skin General skin exam: no rashes or lesions noted Neuro General: patient oriented x3 Extrem General: Yes normal to inspection, No no pedal edema and No calf tenderness Psych Appearance: grossly normal Mental Status: mental status grossly normal Speech and movement: Normal speech and movement present Assessment & Plan Assessment & Plan (1) Precordial chest pain: Code(s): R07.2 - Precordial pain Category: Medical Plan: 03/12/2025-echo study showed a normal LV systolic function with an ejection fraction between 65-70% with impaired relaxation filling pattern. 03/16/2025-patient underwent a stress echocardiogram that showed no evidence of ischemia at the achieved workload. Given above findings and resolution of her symptoms, no further testing indicated at this time. Blood pressure is well-controlled. Continue current regimen of hydrochlorothiazide lisinopril and metoprolol. Advised monitoring blood pressures with a goal less than 130/80. Continue statin therapy with an LDL goal less than 100. Advised heart healthy diet, regular exercise, med compliance, management of vascular risk factors, and avoidance of foods that triggers her symptoms. Follow up on an as-needed basis. In the interim, patient will call the office with any concerns or change in symptoms. Advised to seek ER care in case of exertional chest pain not resolved with rest. This note was generated using voice recognition software. While every effort has been made to ensure accuracy and proper product support consultant, there may be occasional errors that could affect the content or meaning of the described symptoms. Coding Level of Care Code Est Pt Level 3 (05785) Complex EM visit Add On G2211 Diagnoses Precordial chest pain R07.2 Time Spent (min) 29 Comment Time spent in reviewing the chart, test results, assessment, counseling and documentation.
--- OUTSIDE RECORDS SUMMARY | 2025-04-08 17:21 | XMS_ITS | Patient Health Record ---
Author Organization Mamadou Rodriguez III, MD Address [address] [place] [address] Care Team Providers Care Cloth Opener Hand Name Role Phone Jeniffer COLINDRES, [facility] Primary Care Provider Mamadou Freeman Unavailable [phone] Allergies Allergen (clinical drug ingredient) Drug/Non Drug Allergy documented on EMR Reaction Allergy Type Onset Date Status Penicillin Unknown Drug Allergy Active hydrochlorothiazide Hydrochlorothiazide Unknown Drug Aller gy Active atorvastatin Atorvastatin Calcium Unknown Drug Allergy Active aspirin Aspirin Unknown Drug Allergy Active Results Component Value Reference Range Notes Complete Blood Count Auto Di ff Reviewed date:04/16/2024 06:33:49 AM Interpretation: Performing Lab:[facility], [address] [place] [phone] Notes/Report: White Blood Count 14.7 4.8-10.8 X10*3/uL [...] te Reviewed date:04/16/2024 06:33:49 AM Interpretation: Performing Lab:[address] [phone] Notes/Report: Erythrocyte Sedimentation Rate 8 0-20 MM/HR Patients with polycythemia and many hemoglobin abnormalities may have depressed sed rates whereas patients with anemia may have elevated sed rates. Comprehensive Met. Panel Reviewed date:04/16/2024 06:33:49 AM Interpretation: Performing Lab:[facility], [address] [place] [phone] Notes/Report: Sodium 143 135-145 mmol/L Potassium 4.4 3.3-5.1 mmol/L Chloride 105 96-108 mmol/L Carbon Dioxide 30 22-29 mmol/L Anion Gap 12 12-20 Blood Urea Nitrogen 24 9-16 mg/dL Creatinine 1.20 0.5-1.4 mg/dL Estimated Glomerular Filt Rate 44 NOTE: For -Citizen Of [place] individuals, multiply the result by 1.210. Chronic [...] Dehydrogenase Reviewed date:04/16/2024 06:33:49 AM Interpretation: Performing Lab:[facility], [address] [place] [phone] Notes/Report: Lactate Dehydrogenase 202 122-220 U/L Beta-2 Microglobulin, Serum Reviewed date:04/21/2024 05:54:38 AM Interpretation: Performing Lab:[facility], [address] [place] [phone] Notes/Report: Beta-2 Microglobulin, Serum 2.91 < OR = 2.51 mg/L THIS TEST WAS PERFORMED AT: [facility] [address] [place] [phone] PRASHANTH SAMPSON MD SLIDE REVIEW Reviewed date:04/16/2024 06:33:49 AM Interpretation: Performing Lab:[facility], [address] [place] [phone] Notes/Report: SLIDE REVIEW VERIFIED Complete Blood Count Auto Di ff Reviewed date:10/15/2024 08:49:12 AM Interpretation: Performing Lab:[facility], [address] [place] [phone] Notes/Report: White Blood Count 14.8 4.8-10.8 X10*3/uL [...] te Reviewed date:10/15/2024 08:49:12 AM Interpretation: Performing Lab:[facility], [address] [place] [phone] Notes/Report: Erythrocyte Sedimentation Rate 10 0-20 MM/HR Patients with polycythemia and many hemoglobin abnormalities may have depressed sed rates whereas patients with anemia may have elevated sed rates. Comprehensive Met. Panel Reviewed date:10/15/2024 08:49:12 AM Interpretation: Performing Lab:[facility], [address] [place] [phone] Notes/Report: Sodium 144 135-145 mmol/L Potassium 4.5 [...] Dehydrogenase Reviewed date:10/15/2024 08:49:12 AM Interpretation: Performing Lab:[facility], [address] [place] [phone] Notes/Report: Lactate Dehydrogenase 192 122-220 U/L Beta-2 Microglobulin, Serum Reviewed date:10/20/2024 04:52:46 AM Interpretation: Performing Lab:[facility], [address] [place] [phone] Notes/Report: Beta-2 Microglobulin, Serum 2.48 < OR = 2.51 mg/L THIS TEST WAS PERFORMED AT: [facility] [address] [place] [phone] PRASHANTH SAMPSON MD SLIDE REVIEW Reviewed date:10/15/2024 08:49:12 AM Interpretation: Performing Lab:[facility], [address] [place] [phone] Notes/Report: SLIDE REVIEW VERIFIED Reason For Referral [...] Problem Status W/U Status Risk Notes Problem 219841782 Overweight (E66.3) Active confirmed Her body mass index is 28. She has remained stable. We have discussed diet and nutrition and weight reduction strategies today. Problem 312627645 Mixed hyperlipidemia (E78.2) Active confirmed She continues o n the rosuvastatin. I recommended she have her lipids checked 2 or 3 times a year. Problem 75810005 Tobacco dependence (F17.200) Active confirmed I recommended smoking cessation and made her aware of the smoking cessation programs at the local hospital. We spent significant time today discussing her cardiovascular risk factors. We have discussed Takes for smoking cessation at length. She will consider taking medication. 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 Problem 64585520 Chronic lymphocytic leukemia (C91.10) Active confirmed The chronic lymphocytic leukemia is stable without change. Observation will continue. Problem 217565180 Chronic GERD (K21.9) Active confirmed Her reflexes well controlled with the current regimen which was continued without change. Problem 110944301 Osteopenia of lumbar spine (M85.88) Active confirmed [...] Date Provider Diagnosis Mamadou Rodriguez III, MD [address] [place] [address] [place] [address] 04/24/2024 Mamadou Rodriguez Chronic lymphocytic leukemia C91.10 ; Overweight E66.3 ; Mixed hyperlipidemia E78.2 and Tobacco dependence F17.200 Mamadou Rodriguez III, MD [address] [place] [address] [place] [address] 10/23/2024 Mamadou Rodriguez Chronic lymphocytic leukemia C91.10 [...] 10/24/2023 Next Appt Details Provider Name:Mamadou Rodriguez, 05/19/2025 10:15:00 AM, [address] [place] [address] [place] [address], [place], [address], Insurance Providers Payer Name Payer Address Payer Phone Subscriber Number Group Number Insured Name Patient Relationship to Insured Coverage Start Date Coverage End Date [employer] [place]ED [address] [place] [address] [id number] Anabella Schumacher Self - patient is the insured MEDICARE NGS [address] [place] [phone] [id number] Anabella Schumacher Self - patient is the insured Medical (General) History Medical History History ICD Code Hypertension I10 GERD hyperlipidemia history of herpes zoster osteopenia lymphocytosis Overweight tobacco dependence penicillin allergic Surgical History Surgery Date(Month/Year) none reported
== END 2025-04-08 14:26 | disposition home or self-care (01) ==
LOC: HO.HCS 13:31
PROVIDERS: PCP Internal Medicine
DX: R07.2 Precordial pain (principal)
CPT/HCPCS: 99213; G2211

== ENCOUNTER → 2025-04-08 13:31 | Outpatient (BNVA) | payer MEDICARE, SELFPAY | PROVIDERS: PCP Internal Medicine | DX: R07.2 Precordial pain (principal) | CPT/HCPCS: 99212 ==

== ENCOUNTER 2025-05-28 07:40 | Outpatient (REF) | payer MEDICARE, SELFPAY ==
--- OUTSIDE RECORDS SUMMARY | 2024-04-24 05:45 | XMS_ITS ---
Author Organization Mamadou Rodriguez III, MD Address [address] [place] [address] [place] [address] Care Team Providers Care Continuity Editor Name Role Phone Jeniffer COLINDRES, [facility] Primary Care Provider Dr. Mamadou Freeman III Unavailable [phone] Allergies Allergen (clinical drug ingredient) Drug/Non Drug Allergy documented on EMR Reaction Allergy Type Onset Date Status atorvastatin Atorvastatin Calcium Unknown Drug Allergy Active aspirin Aspirin Unknown Drug Allergy Active Penicillin Unknown Drug Allergy Active hydrochlorothiazide Hydrochlorothiazide Unknown Drug Aller gy Active REASON FOR VISIT Chronic lymphocytic leukemia, GERD, Hyperlipidemia, osteopenia, Tobacco dependence Medications Medication SIG (Take, Route, Frequency, Duration) Notes Start Date End Date Status Rosuvastatin Calcium 20 MG 1 tablet Oral ly Once a day Active Metoprolol Succinate ER 50 MG 1 tablet O rally Once a day Active Lisinopril 40 MG 1 tablet Orally Once a day Active Ibuprofen 200 MG 1 tablet with food o r milk as needed Orally Three times a day Active hydroCHLOROthiazide 25 MG 1 tablet in th e morning Orally Once a day Active Flonase Allergy Relief 50 MCG/ACT 1 spray in each nostril Nasally Once a day Active Famotidine 40 MG 1 tablet at bedtime Orally Once a day Active Social History [...] Non-User Current no n-smoker Vital Signs Temperature 97.6 degrees Fahrenheit 04/24/20 24 Blood pressure systolic 136 mm Hg 04/24/20 24 Blood pressure diastolic 64 mm Hg 024 Heart Rate 63 /min 04/24/2024 Height 63 in 04/24/2024 Weight 159 lbs 04/24/2024 BMI 28.16 kg/m2 04/24/2024 Encounters Encounter Location Date Provider Diagnosis Mamadou Rodriguez III, MD [address] [place] [address] DR ARENAS CRUZITO, [place] [address] 04/24/2024 Mamadou Rodriguez Chronic lymphocytic leukemia C91.10 ; Overweight E66.3 ; Mixed hyperlipidemia E78.2 and Tobacco dependence F17.200 Assessments Encounter Date Diagnosis (ICD Code) Assessment Notes Treat ment Notes Treatment Clinical Notes 04/24/2024 Chronic lymphocytic leukemia (ICD-10 - C91.10) The disease has continued to pursue an indolent course with no sign of progression. He remains in an early stage was only lymphocytosis. No treatment is needed. 04/24/2024 Overweight (ICD-10 - E66.3) Her body mass index is 28. She has remained stable. We have discussed diet and nutrition and weight reduction strategies today. 04/24/2024 Mixed hyperlipidemia (ICD-10 - E78.2) Her lipids have been stable. I have recommended aggressive weight loss and a diet low in animal fat. 04/24/2024 Tobacco dependence (ICD-10 - F17.200) I recommended smoking cessation and made her aware of the smoking cessation programs at the local hospital. We spent significant time today discussing her cardiovascular risk factors. We have discussed Takes for smoking cessation at length. She will consider taking medication. Plan Of Treatment Medication Medication Name Sig Start Date Stop Date Notes Rosuvastatin Calcium 20 MG 1 tablet Oral ly Once a day Metoprolol Succinate ER 50 MG 1 tablet O rally Once a day Lisinopril 40 MG 1 tablet Orally Once a day Ibuprofen 200 MG 1 tablet with food o r milk as needed Orally Three times a day hydroCHLOROthiazide 25 MG 1 tablet in th e morning Orally Once a day Flonase Allergy Relief 50 MCG/ACT 1 spra y in each nostril Nasally Once a day Famotidine 40 MG 1 tablet at bedtime Orally Once a day Pending Test Test Name Order Date PROFILE, RANDOM (COMPREHENSIVE METABOLIC ) 04/24/2024 LDH 04/24/2024 SED RATE (ESR) 04/24/2024 CBC WITH AUTO DIFF 04/24/2024 Beta-2 Microglobulin, Serum 04/24/2024 Next Appt Details Follow Up: 6 Months, Reason: OV Provider Name:Mamadou Rodriguez , 06/04/2025 10:30:00 AM, [address] [place], [place] [address]JOSE MIGUEL CRUZITO [place], [address], Progress Notes * Clementina SCHUMACHERaDOB:1944 (78 yo F)Acc No.[id number]:04/24/2024 Progress Notes Patient: Anabella GOMES Provider: Loy Rodriguez MD :1945 A ge:78 Y S ex:Female Date:04/24/2024 Address:[address] [place], [place] [address]DA [id number] Pcp:Angela Swift MD Subjective: * Chief Complaints: * C hronic lymphocytic leukemiaGERDHyperlipidemiaOsteopeniaTobacco dependence * HPI: C OVID-19 Screening: She returns to the office for medical management of chronic lymphocytic leukemia. She is seen every 6 months. Since her last visit she has been well. Her blood work today showed no sign of disease progression. She has had no B symptoms.? She denies fever chills or pain. She has had no adenopathy. Her blood work was reviewed with her in detail. Observation was continued. She has had no bleeding or infections. Questions H ave you experienced fever, chills, cough, sore throat, shortness of breath, difficulty breathing, muscle aches, loss of taste or smell? N o H ave you been exposed to the virus within the last 10 days? N o H ave you travelled internationally in the last 10 days? N o H ave you been exposed to COVID-19 in the past? N o * ROS: G eneral/Constitutional: pain o nly normal aches and pains. C hills d enies.?Fatigue a dmits. F ever d enies. E NT: Decreased hearing d enies. R espiratory: Cough n on-productive. C ardiovascular: Chest pain with exertion d [...] have been noted. G enitourinary: Frequent urination a t night. M usculoskeletal: Muscle aches d enies. P [...] was born in [place] and came to [facility] at the age of 33. She is with no children. She lives in [facility]. 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 She does not remember any exposure to benzoin. * Medications: T akingFamotidine 40 MG Tablet 1 tablet at bedtime Orally Once a day Flonase Allergy Relief 50 MCG/ACT Suspension 1 spray in each nostril Nasally Once a day hydroCHLOROthiazide 25 MG Tablet 1 tablet in the morning Orally Once a day Ibuprofen 200 MG Tablet 1 tablet with food or milk as needed Orally Three times a day Lisinopril 40 MG Tablet 1 tablet Orally Once a day Metoprolol Succinate ER 50 MG Tablet Extended Release 24 Hour 1 tablet Orally Once a day Rosuvastatin Calcium 20 MG Tablet 1 tablet Orally Once a day Medication List reviewed and reconciled with the patientTaking Famotidine 40 MG Tablet 1 tablet at bedtime Orally Once a day Taking Flonase Allergy Relief 50 MCG/ACT Suspension 1 spray in each nostril Nasally Once a day Taking hydroCHLOROthiazide 25 MG Tablet 1 tablet in the morning Orally Once a day Taking Ibuprofen 200 MG Tablet 1 tablet with food or milk as needed Orally Three times a day Taking Lisinopril 40 MG Tablet 1 tablet Orally Once a day Taking Metoprolol Succinate ER 50 MG Tablet Extended Release 24 Hour 1 tablet Orally Once a day Taking Rosuvastatin Calcium 20 MG Tablet 1 tablet Orally Once a day Medication List reviewed and reconciled with the patient * Allergies: A torvastatin CalciumAspirinPenicillin: AllergyHydrochlorothiazide: Allergyno[Allergies Verified] Objective: * Vitals: H t: 63, Wt:159, BMI:28.16, BP:136/64, HR:63, Temp:97.6, Wt-k.12. * P ast Orders: Lab:Lactate Dehydrogenase * Collection Date 04/15/2024 10/16/2023 04/17/2023 Collection Time 07:42 AM 08:42 AM 07:11 AM Order Date 04/15/2024 10/16/2023 04/17/2023 Lactate Dehydrogenase 202 (Ref Range: 122-220 U/L) 175 (Ref Range: 122-220 U/L) 172 (Ref Range: 122-220 U/L) * Lab:Comprehensive Met. Panel * Collection Date 04/15/2024 04/17/2023 10/10/2022 Collection Time 07:42 AM 07:11 AM 08:12 AM Order Date 04/15/2024 04/17/2023 10/10/2022 Sodium 143 (Ref Range: 135-145 mmol/L) 141 (Ref Range: 135-145 mmol/L) 142 (Ref Range: 135-145 mmol/L) Bilirubin Total 0.5 (Ref Range: 0.0-1.0 mg/dL) 0.6 (Ref Range: 0.0-1.0 mg/dL) 0.8 (Ref Range: 0.0-1.0 mg/dL) Aspartate Amino Transferase 24 (Ref Range: 5-31 U/L) 21 (Ref Range: 5-31 U/L) 21 (Ref Range: 5-31 U/L) Alanine Aminotransferase 24 (Ref Range: 0-31 U/L) 21 (Ref Range: 0-31 U/L) 25 (Ref Range: 0-31 U/L) Total Protein 7.3 (Ref Range: 6.5-8.0 g/dL) 7.2 (Ref Range: 6.5-8.0 g/dL) 6.7 (Ref Range: 6.5-8.0 g/dL) Albumin Level 4.4 (Ref Range: 3.5-5.0 g/dL) 4.4 (Ref Range: 3.5-5.0 g/dL) 4.2 (Ref Range: 3.5-5.0 g/dL) Alkaline Phosphatase 64 (Ref Range: 39-117 U/L) 66 (Ref Range: 39-117 U/L) 62 (Ref Range: 39-117 U/L) Potassium 4.4 (Ref Range: 3.3-5.1 mmol/L) 4.1 (Ref Range: 3.3-5.1 mmol/L) 4.1 (Ref Range: 3.3-5.1 mmol/L) Chloride 105 (Ref Range: 96-108 mmol/L) 105 (Ref Range: 96-108 mmol/L) 105 (Ref Range: 96-108 mmol/L) Carbon Dioxide 30 H (Ref Range: 22-29 mmol/L) 27 (Ref Range: 22-29 mmol/L) 30 H (Ref Range: 22-29 mmol/L) Anion Gap 12 (Ref Range: 12-20) 13 (Ref Range: 12-20) 11 L (Ref Range: 12-20) Blood Urea Nitrogen 24 H (Ref Range: 9-16 mg/dL) 15 (Ref Range: 9-16 mg/dL) 16 (Ref Range: 9-16 mg/dL) Creatinine 1.20 (Ref Range: 0.5-1.4 mg/dL) 0.82 (Ref Range: 0.5-1.4 mg/dL) 0.83 (Ref Range: 0.5-1.4 mg/dL) Estimated Glomerular Filt Rate 44 > 60 > 60 Glucose Random 110 (Ref Range: 60-115 mg/dL) 95 (Ref Range: 60-115 mg/dL) 108 (Ref Range: 60-115 mg/dL) Calcium 10.2 (Ref Range: 8.4-10.2 mg/dL) 9.7 (Ref Range: 8.4-10.2 mg/dL) 9.4 (Ref Range: 8.4-10.2 mg/dL) * Lab:Erythrocyte Sedimentatio n Rate * Collection Date 04/15/2024 10/16/2023 04/17/2023 Collection Time 07:42 AM 08:42 AM 07:11 AM Order Date 04/15/2024 10/16/2023 04/17/2023 Erythrocyte Sedimentation Rate 8 (Ref Range: 0-20 MM/HR) 9 (Ref Range: 0-20 MM/HR) 7 (Ref Range: 0-20 MM/HR) * Lab:Complete Blood Count Aut o Diff * Collection Date 04/15/2024 10/16/2023 04/17/2023 Collection Time 07:42 AM 08:42 AM 07:11 AM Order Date 04/15/2024 10/16/2023 04/17/2023 White Blood Count 14.7 H (Ref Range: 4.8-10.8 X10*3/uL) 14.5 H (Ref Range: 4.8-10.8 X10*3/uL) 18.1 H (Ref Range: 4.8-10.8 X10*3/uL) Red Blood Count 4.38 (Ref Range: 4.20-5.50 X10*6/uL) 4.41 (Ref Range: 4.20-5.50 X10*6/uL) 4.85 (Ref Range: 4.20-5.50 X10*6/uL) Hemoglobin 13.0 (Ref Range: 12.0-16.0 g/dl) 13.1 (Ref Range: 12.0-16.0 g/dl) 14.3 (Ref Range: 12.0-16.0 g/dl) Hematocrit 39.2 (Ref Range: 37.0-47.0 %) 39.7 (Ref Range: 37.0-47.0 %) 43.6 (Ref Range: 37.0-47.0 %) Mean Corpuscular Volume 89.5 (Ref Range: 80.0-98.0 fL) 90.0 (Ref Range: 80.0-98.0 fL) 89.9 (Ref Range: 80.0-98.0 fL) Mean Corpuscular Hemoglobin 29.7 (Ref Range: 27.0-33.0 pg) 29.7 (Ref Range: 27.0-33.0 pg) 29.5 (Ref Range: 27.0-33.0 pg) Mean Corpuscular HGB Conc 33.2 (Ref Range: 31.0-35.0 g/dl) 33.0 (Ref Range: 31.0-35.0 g/dl) 32.8 (Ref Range: 31.0-35.0 g/dl) Red Cell Distribution Width 13.2 (Ref Range: 11.0-16.0 %) 13.3 (Ref Range: 11.0-16.0 %) 13.2 (Ref Range: 11.0-16.0 %) Platelet Count 169 (Ref Range: 160-400 X10*3/uL) 196 (Ref Range: 160-400 X10*3/uL) 181 (Ref Range: 160-400 X10*3/uL) Mean Platelet Volume 10.6 (Ref Range: 9.4-12.3 fL) 10.5 (Ref Range: 9.4-12.3 fL) 10.3 (Ref Range: 9.4-12.3 fL) Neutrophils Percent Auto 12.9 L (Ref Range: 45-73 %) 12.6 L (Ref Range: 45-73 %) 10.0 L (Ref Range: 45-73 %) Imm Gran Pct Auto 0.1 (Ref Range: 0.0-0.4 %) 0.1 (Ref Range: 0.0-0.4 %) 0.2 (Ref Range: 0.0-0.4 %) Lymphocytes Percent Auto 77.8 H (Ref Range: 20-40 %) 78.0 H (Ref Range: 20-40 %) 79.9 H (Ref Range: 20-40 %) Monocytes Percent Auto 5.3 (Ref Range: 2-11 %) 5.4 (Ref Range: 2-11 %) 4.6 (Ref Range: 2-11 %) Eosinophils Percent Auto 3.2 (Ref Range: 0-4 %) 3.3 (Ref Range: 0-4 %) 4.7 H (Ref Range: 0-4 %) Basophils Percent Auto 0.7 (Ref Range: 0-2 %) 0.6 (Ref Range: 0-2 %) 0.6 (Ref Range: 0-2 %) NRBC Pct Auto 0.0 (Ref Range: 0.0-0.2 /100WBC) 0.0 (Ref Range: 0.0-0.2 /100WBC) 0.0 (Ref Range: 0.0-0.2 /100WBC) Neutrophils Absolute Auto 1.9 L (Ref Range: 2.0-8.3 x10*3/uL) 1.8 L (Ref Range: 2.0-8.3 x10*3/uL) 1.8 L (Ref Range: 2.0-8.3 x10*3/uL) Imm Gran Abs Auto 0.02 (Ref Range: 0.00-0.03 X10*3/uL) 0.02 (Ref Range: 0.00-0.03 X10*3/uL) 0.03 (Ref Range: 0.00-0.03 X10*3/uL) Lymphocytes Absolute Auto 11.4 H (Ref Range: 1.2-4.9 X10*3/uL) 11.3 H (Ref Range: 1.2-4.9 X10*3/uL) 14.5 H (Ref Range: 1.2-4.9 X10*3/uL) Monocytes Absolute Auto 0.8 (Ref Range: 0.1-1.2 X10*3/uL) 0.8 (Ref Range: 0.1-1.2 X10*3/uL) 0.8 (Ref Range: 0.1-1.2 X10*3/uL) Eosinophils Absolute Auto 0.5 H (Ref Range: 0.0-0.4 X10*3/uL) 0.5 H (Ref Range: 0.0-0.4 X10*3/uL) 0.9 H (Ref Range: 0.0-0.4 X10*3/uL) Basophils Absolute Auto 0.1 (Ref Range: 0.0-0.2 X10*3/uL) 0.1 (Ref Range: 0.0-0.2 X10*3/uL) 0.1 (Ref Range: 0.0-0.2 X10*3/uL) NRBC Abs Auto 0.000 (Ref Range: 0.0-0.012 X10*3/uL) 0.000 (Ref Range: 0.0-0.012 X10*3/uL) 0.000 (Ref Range: 0.0-0.012 X10*3/uL) * Lab:SLIDE REVIEW * Collection Date 04/15/2024 10/16/2023 04/17/2023 Collection Time 07:42 AM 08:42 AM 07:11 AM Order Date 04/15/2024 10/16/2023 04/17/2023 SLIDE REVIEW VERIFIED VERIFIED VERIFIED * Lab:Beta-2 Microglobulin, Se rum * Collection Date 04/15/2024 10/10/2022 12/13/2020 Collection Time 07:42 AM 08:12 AM 08:30 AM Order Date 04/15/2024 10/10/2022 12/13/2020 Beta-2 Microglobulin, Serum 2.91 A (Ref Range: < OR = 2.51 mg/L) 2.68 A (Ref Range: < OR = 2.51 mg/L) 2.09 (Ref Range: < OR = 2.51 mg/L) * Examination: G eneral Examination: GENERAL APPEARANCE: p leasant, well nourished, well developed, in no acute distress, calm and relaxed, overweight, woman. HEAD: a traumatic, normocephalic. EYES: [...] normal, no s3, or vascular bruits. LUNGS: c lear to auscultation . BREASTS: n ot examined. ABDOMEN: b owel [...] 1. C hronic lymphocytic leukemia - C91.10 (Primary) N otes :The disease has continued to pursue an indolent course with no sign of progression. He remains in an early stage was only lymphocytosis. No treatment is needed. 2 . O verweight - E66.3 N otes :Her body mass index is 28. She has remained stable. We have discussed diet and nutrition and weight reduction strategies today. 3 . M ixed hyperlipidemia - E78.2 N otes :Her lipids have been stable. I have recommended aggressive weight loss and a diet low in animal fat. 4 . T obacco dependence - F17.200 N otes :I recommended smoking cessation and made her aware of the smoking cessation programs at the local hospital. We spent significant time today discussing her cardiovascular risk factors. We have discussed Takes for smoking cessation at length. She will consider taking medication. Plan: * Treatment: 2. O verweight L AB: PROFILE, RANDOM (COMPREHENSIVE METABOLIC) L AB: LDH L AB: SED RATE (ESR) L AB: CBC WITH AUTO DIFF L AB: Beta-2 Microglobulin, Serum 3. M ixed hyperlipidemia L AB: PROFILE, RANDOM [...] management education, guidance, and counseling, Dietary needs education S moking/Tobacco Use Patient counseled on the dangers of tobacco use and urged to quit. 1 Patient Lifestyle Goals P atient wants to quit Treatment Goals S et a quit date, Cut down by 1 cigarette a week Barriers S ocial smoker, Stress Self-Management Plan M eulogio a plan to cut down number of cigarettes over time and set a date to work towards quitting * Follow Up: 6 Months (Reason: OV) * Images: * Sign off status: Completed true * Provider: Loy Rodriguez MD Date: 1 Generated for Sylvia delaney/Jose/eTransmitting on: 07/28/2024 07:43 AM EST History and Physical Notes * HPI (History of Present Illness) Category Sub-Category Detail Notes COVID-19 Screening Questions Have you had any new onset fever, chills, cough, congestion, sore throat, shortness of breath, muscle aches?: No Have you been exposed to the virus withi n the last 10 days?: No Have you travelled internationally in e last 10 days?: No Have you been exposed to COVID-19 in the past?: No Examination Category Sub-Category Detail Notes General Examination GENERAL APPEARANCE: pleasant , well nourished, well developed, in no acute distress, calm and relaxed, overweight, woman HEAD: atraumatic, normocep halic EYES: eomi, perrla, anicte heather, conjugate EARS: normal NOSE: septum intact NECK/THYROID: no jugular venous di stention, no carotid bruit, thyroid normal HEART: no clicks, gallops, murmurs, or rubs, regular rhythm, S1, S2 normal, no s3, or vascular bruits LUNGS: clear to auscultatio n ABDOMEN: bowel sounds normal, no ascites, no [...]
--- OUTSIDE RECORDS SUMMARY | 2024-10-23 05:30 | XMS_ITS ---
Author Organization Mamadou Rodriguez III, MD Address [address] [place] [address] [place] [address] Care Team Providers Care Poultry Helper Name Role Phone Jeniffer COLINDRES, [facility] Primary Care Provider Yuri Rodriguez III, Dr. Cedillo Unavailable [phone] Allergies Allergen (clinical drug ingredient) Drug/Non Drug Allergy documented on EMR Reaction Allergy Type Onset Date Status atorvastatin Atorvastatin Calcium Unknown Drug Allergy Active aspirin Aspirin Unknown Drug Allergy Active Penicillin Unknown Drug Allergy Active hydrochlorothiazide Hydrochlorothiazide Unknown Drug Aller gy Active REASON FOR VISIT Chronic lymphocytic leukemia, GERD, Osteopenia, Hyperlipidemia, Tobacco dependence Medications Medication SIG (Take, Route, Frequency, Duration) Notes Start Date End Date Status Ibuprofen 200 MG 1 tablet with food o r milk as needed Orally Three times a day Active Lisinopril 40 MG 1 tablet Orally Once a day Active Metoprolol Succinate ER 50 MG 1 tablet O rally Once a day Active Flonase Allergy Relief 50 MCG/ACT 1 spray in each nostril Nasally Once a day Active hydroCHLOROthiazide 25 MG 1 tablet in th e morning Orally Once a day Active Rosuvastatin Calcium 20 MG 1 tablet Oral ly Once a day Active Famotidine 40 MG 1 tablet at bedtime Orally Once a day Active Social History Tobacco Use: Social History Observation Description Date Details (start date - stop date) Current Smoker NA - NA Sex Assigned At : Social History Observation Description Sex Assigned At Female Tobacco Use/Smoking Question Answer Notes Patient is a former smoker How long has it been since you last smoked? 3-6 months Additional Findings: Tobacco Non-User Current no n-smoker Tobacco Control (Standard) Question Answer Notes Tobacco use: Current smoker Vital Signs Temperature 97.6 degrees Fahrenheit 10/24/19 25 Blood pressure systolic 140 mm Hg 10/24/19 25 Blood pressure diastolic 81 mm Hg 025 Heart Rate 60 /min 10/23/2024 Height 63 in 10/23/2024 Weight 165 lbs 10/23/2024 BMI 29.23 kg/m2 10/23/2024 Encounters Encounter Location Date Provider Diagnosis Mamadou Rodriguez III, MD [address] [place] [address] [place] [address] 10/23/2024 Mamadou Rodirguez Chronic lymphocytic leukemia C91.10 ; Mixed hyperlipidemia E78.2 ; Chronic GERD K21.9 ; Osteopenia of lumbar spine M85.88 and Tobacco dependence F17.200 Assessments Encounter Date Diagnosis (ICD Code) Assessment Notes Treat ment Notes Treatment Clinical Notes 10/23/2024 Chronic lymphocytic leukemia (ICD-10 - C91.10) The chronic lymphocytic leukemia is stable without change. Observation will continue. 10/23/2024 Mixed hyperlipidemia (ICD-10 - E78.2) She continues on the rosuvastatin. I recommended she have her lipids checked 2 or 3 times a year. 10/23/2024 Chronic GERD (ICD-10 - K21.9) Her reflexes well controlled with the current regimen which was continued without change. 10/23/2024 Osteopenia of lumbar spine (ICD-10 - M85.88) She has a history of osteopenia. This is being managed by primary care. 10/23/2024 Tobacco dependence (ICD-10 - F17.200) I recommended smoking cessation and made her aware of the smoking cessation programs at the local hospital. We spent significant time today discussing her cardiovascular risk factors. We have discussed Takes for smoking cessation at length. She will consider taking medication. Plan Of Treatment Medication Medication Name Sig Start Date Stop Date Notes Ibuprofen 200 MG 1 tablet with food o r milk as needed Orally Three times a day Lisinopril 40 MG 1 tablet Orally Once a day Metoprolol Succinate ER 50 MG 1 tablet O rally Once a day Flonase Allergy Relief 50 MCG/ACT 1 spra y in each nostril Nasally Once a day hydroCHLOROthiazide 25 MG 1 tablet in th e morning Orally Once a day Rosuvastatin Calcium 20 MG 1 tablet Oral ly Once a day Famotidine 40 MG 1 tablet at bedtime Orally Once a day Pending Test Test Name Order Date PROFILE, RANDOM (COMPREHENSIVE METABOLIC ) 10/23/2024 CBC w DIFF 10/23/2024 Next Appt Details Follow Up: 6 Months, Reason: OV Provider Name:Mamadou Rodriguez , 06/04/2025 10:30:00 AM, [address] [place] [address] JOSE MIGUEL [place], [phone], Progress Notes * Clementina SCHUMACHERaDOB:1944 (79 yo F)Acc No.[id number]:10/23/2024 Progress Notes Patient: Anabella GOMES Provider: Loy Rodriguez MD :1945 A ge:79 Y S ex:Female Date:10/23/2024 Address:[address] [place] [address] [id number] Pcp:Angela Swift MD Subjective: * Chief Complaints: * C hronic lymphocytic leukemiaGERDOsteopeniaHyperlipidemiaTobacco dependence * HPI: C OVID-19 Screening: She returns for periodic evaluation of the CLL. Her blood work is stable. The only manifestation of the illness was a high white blood cell count. There was no splenomegaly or adenopathy. Her platelet count and hematocrit and hemoglobin were unremarkable. She had complained to her primary care about breathing problems. She was referred to cardiology who found no significant illness. The complaint has resolved. She continues to smoke cigarettes.? She is trying to lose weight. Her esophageal reflux symptoms are controlled with medications. Questions H ave you had any new onset fever, chills, cough, congestion, sore throat, shortness of breath, muscle aches? N o * ROS: G eneral/Constitutional: pain o nly normal aches and pains. C hills d enies.?Fatigue a dmits. F ever d enies. E NT: Decreased hearing d enies. R espiratory: Cough d enies. C ardiovascular: Chest pain with exertion d enies. D yspnea on exertion?denies. S hortness of breath d enies. G astrointestinal: Constipation o ccasional. D ecreased appetite d enies. D iarrhea d enies. H eartburn o ccasional. N ausea d enies. R ectal bleeding d enies. V omiting d enies. H ematology: bruising [...] dditional Findings: Tobacco Non-User C urrent non-smoker Tobacco Control (Standard) T obacco use: C urrent smoker S he was born in [place] and came to [facility] at the age of 33. She is with no children. She lives in [facility]. 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 Her only exposures were [...] Verified] Objective: * Vitals: H t: 63, Wt:165, BMI:29.23, BP:140/81, HR:60, Temp:97.6, Wt-k.84. * P ast Orders: Lab:SLIDE REVIEW * Collection Date 10/14/2024 04/15/2024 10/16/2023 Collection Time 08:34 AM 07:42 AM 08:42 AM Order Date 10/14/2024 04/15/2024 10/16/2023 SLIDE REVIEW VERIFIED VERIFIED VERIFIED * Lab:Complete Blood Count Aut o Diff * Collection Date 10/14/2024 04/15/2024 10/16/2023 Collection Time 08:34 AM 07:42 AM 08:42 AM Order Date 10/14/2024 04/15/2024 10/16/2023 White Blood Count 14.8 H (Ref Range: 4.8-10.8 X10*3/uL) 14.7 H (Ref Range: 4.8-10.8 X10*3/uL) 14.5 H (Ref Range: 4.8-10.8 X10*3/uL) Red Blood Count 4.37 (Ref Range: 4.20-5.50 X10*6/uL) 4.38 (Ref Range: 4.20-5.50 X10*6/uL) 4.41 (Ref Range: 4.20-5.50 X10*6/uL) Hemoglobin 13.0 (Ref Range: 12.0-16.0 g/dl) 13.0 (Ref Range: 12.0-16.0 g/dl) 13.1 (Ref Range: 12.0-16.0 g/dl) Hematocrit 39.6 (Ref Range: 37.0-47.0 %) 39.2 (Ref Range: 37.0-47.0 %) 39.7 (Ref Range: 37.0-47.0 %) Mean Corpuscular Volume 90.6 (Ref Range: 80.0-98.0 fL) 89.5 (Ref Range: 80.0-98.0 fL) 90.0 (Ref Range: 80.0-98.0 fL) Mean Corpuscular Hemoglobin 29.7 (Ref Range: 27.0-33.0 pg) 29.7 (Ref Range: 27.0-33.0 pg) 29.7 (Ref Range: 27.0-33.0 pg) Mean Corpuscular HGB Conc 32.8 (Ref Range: 31.0-35.0 g/dl) 33.2 (Ref Range: 31.0-35.0 g/dl) 33.0 (Ref Range: 31.0-35.0 g/dl) Red Cell Distribution Width 13.2 (Ref Range: 11.0-16.0 %) 13.2 (Ref Range: 11.0-16.0 %) 13.3 (Ref Range: 11.0-16.0 %) Platelet Count 179 (Ref Range: 160-400 X10*3/uL) 169 (Ref Range: 160-400 X10*3/uL) 196 (Ref Range: 160-400 X10*3/uL) Mean Platelet Volume 10.4 (Ref Range: 9.4-12.3 fL) 10.6 (Ref Range: 9.4-12.3 fL) 10.5 (Ref Range: 9.4-12.3 fL) Neutrophils Percent Auto 14.9 L (Ref Range: 45-73 %) 12.9 L (Ref Range: 45-73 %) 12.6 L (Ref Range: 45-73 %) Imm Gran Pct Auto 0.2 (Ref Range: 0.0-0.4 %) 0.1 (Ref Range: 0.0-0.4 %) 0.1 (Ref Range: 0.0-0.4 %) Lymphocytes Percent Auto 75.7 H (Ref Range: 20-40 %) 77.8 H (Ref Range: 20-40 %) 78.0 H (Ref Range: 20-40 %) Monocytes Percent Auto 5.0 (Ref Range: 2-11 %) 5.3 (Ref Range: 2-11 %) 5.4 (Ref Range: 2-11 %) Eosinophils Percent Auto 3.5 (Ref Range: 0-4 %) 3.2 (Ref Range: 0-4 %) 3.3 (Ref Range: 0-4 %) Basophils Percent Auto 0.7 (Ref Range: 0-2 %) 0.7 (Ref Range: 0-2 %) 0.6 (Ref Range: 0-2 %) NRBC Pct Auto 0.0 (Ref Range: 0.0-0.2 /100WBC) 0.0 (Ref Range: 0.0-0.2 /100WBC) 0.0 (Ref Range: 0.0-0.2 /100WBC) Neutrophils Absolute Auto 2.2 (Ref Range: 2.0-8.3 x10*3/uL) 1.9 L (Ref Range: 2.0-8.3 x10*3/uL) 1.8 L (Ref Range: 2.0-8.3 x10*3/uL) Imm Gran Abs Auto 0.03 (Ref Range: 0.00-0.03 X10*3/uL) 0.02 (Ref Range: 0.00-0.03 X10*3/uL) 0.02 (Ref Range: 0.00-0.03 X10*3/uL) Lymphocytes Absolute Auto 11.2 H (Ref Range: 1.2-4.9 X10*3/uL) 11.4 H (Ref Range: 1.2-4.9 X10*3/uL) 11.3 H (Ref Range: 1.2-4.9 X10*3/uL) Monocytes Absolute Auto 0.7 (Ref Range: 0.1-1.2 X10*3/uL) 0.8 (Ref Range: 0.1-1.2 X10*3/uL) 0.8 (Ref Range: 0.1-1.2 X10*3/uL) Eosinophils Absolute Auto 0.5 H (Ref Range: 0.0-0.4 X10*3/uL) 0.5 H (Ref Range: 0.0-0.4 X10*3/uL) 0.5 H (Ref Range: 0.0-0.4 X10*3/uL) Basophils Absolute Auto 0.1 (Ref Range: 0.0-0.2 X10*3/uL) 0.1 (Ref Range: 0.0-0.2 X10*3/uL) 0.1 (Ref Range: 0.0-0.2 X10*3/uL) NRBC Abs Auto 0.000 (Ref Range: 0.0-0.012 X10*3/uL) 0.000 (Ref Range: 0.0-0.012 X10*3/uL) 0.000 (Ref Range: 0.0-0.012 X10*3/uL) * Lab:Erythrocyte Sedimentatio n Rate * Collection Date 10/14/2024 04/15/2024 10/16/2023 Collection Time 08:34 AM 07:42 AM 08:42 AM Order Date 10/14/2024 04/15/2024 10/16/2023 Erythrocyte Sedimentation Rate 10 (Ref Range: 0-20 MM/HR) 8 (Ref Range: 0-20 MM/HR) 9 (Ref Range: 0-20 MM/HR) * Lab:Comprehensive Met. Panel * Collection Date 10/14/2024 04/15/2024 04/17/2023 Collection Time 08:34 AM 07:42 AM 07:11 AM Order Date 10/14/2024 04/15/2024 04/17/2023 Sodium 144 (Ref Range: 135-145 mmol/L) 143 (Ref Range: 135-145 mmol/L) 141 (Ref Range: 135-145 mmol/L) Bilirubin Total 0.4 (Ref Range: 0.0-1.0 mg/dL) 0.5 (Ref Range: 0.0-1.0 mg/dL) 0.6 (Ref Range: 0.0-1.0 mg/dL) Aspartate Amino Transferase 24 (Ref Range: 5-31 U/L) 24 (Ref Range: 5-31 U/L) 21 (Ref Range: 5-31 U/L) Alanine Aminotransferase 26 (Ref Range: 0-31 U/L) 24 (Ref Range: 0-31 U/L) 21 (Ref Range: 0-31 U/L) Total Protein 7.1 (Ref Range: 6.5-8.0 g/dL) 7.3 (Ref Range: 6.5-8.0 g/dL) 7.2 (Ref Range: 6.5-8.0 g/dL) Albumin Level 4.3 (Ref Range: 3.5-5.0 g/dL) 4.4 (Ref Range: 3.5-5.0 g/dL) 4.4 (Ref Range: 3.5-5.0 g/dL) Alkaline Phosphatase 53 (Ref Range: 39-117 U/L) 64 (Ref Range: 39-117 U/L) 66 (Ref Range: 39-117 U/L) Potassium 4.5 (Ref Range: 3.3-5.1 mmol/L) 4.4 (Ref Range: 3.3-5.1 mmol/L) 4.1 (Ref Range: 3.3-5.1 mmol/L) Chloride 111 H (Ref Range: 96-108 mmol/L) 105 (Ref Range: 96-108 mmol/L) 105 (Ref Range: 96-108 mmol/L) Carbon Dioxide 28 (Ref Range: 22-29 mmol/L) 30 H (Ref Range: 22-29 mmol/L) 27 (Ref Range: 22-29 mmol/L) Anion Gap 10 L (Ref Range: 12-20) 12 (Ref Range: 12-20) 13 (Ref Range: 12-20) Blood Urea Nitrogen 33 H (Ref Range: 9-16 mg/dL) 24 H (Ref Range: 9-16 mg/dL) 15 (Ref Range: 9-16 mg/dL) Creatinine 1.15 (Ref Range: 0.5-1.4 mg/dL) 1.20 (Ref Range: 0.5-1.4 mg/dL) 0.82 (Ref Range: 0.5-1.4 mg/dL) Estimated Glomerular Filt Rate 46 44 > 60 Glucose Random 105 (Ref Range: 60-115 mg/dL) 110 (Ref Range: 60-115 mg/dL) 95 (Ref Range: 60-115 mg/dL) Calcium 9.7 (Ref Range: 8.4-10.2 mg/dL) 10.2 (Ref Range: 8.4-10.2 mg/dL) 9.7 (Ref Range: 8.4-10.2 mg/dL) * Lab:Lactate Dehydrogenase * Collection Date 10/14/2024 04/15/2024 10/16/2023 Collection Time 08:34 AM 07:42 AM 08:42 AM Order Date 10/14/2024 04/15/2024 10/16/2023 Lactate Dehydrogenase 192 (Ref Range: 122-220 U/L) 202 (Ref Range: 122-220 U/L) 175 (Ref Range: 122-220 U/L) * Lab:Beta-2 Microglobulin, Se rum * Collection Date 10/14/2024 04/15/2024 10/10/2022 Collection Time 08:34 AM 07:42 AM 08:12 AM Order Date 10/14/2024 04/15/2024 10/10/2022 Beta-2 Microglobulin, Serum 2.48 (Ref Range: < OR = 2.51 mg/L) 2.91 A (Ref Range: < OR = 2.51 mg/L) 2.68 A (Ref Range: < OR = 2.51 mg/L) * Examination: G eneral Examination: GENERAL APPEARANCE: p leasant, well nourished, well developed, in no acute distress, calm and relaxed, woman, overweight, woman. HEAD: a traumatic, normocephalic. EYES: [...] LUNGS: c lear to auscultation . BREASTS: N ot examined. ABDOMEN: b owel sounds normal, no ascites, no organomegaly, no mass, overweight. RECTAL EXAM: n ot examined. MUSCULOSKELETAL: e xtremities unremarkable, no clubbing, cyanosis or edema. PERIPHERAL PULSES: n ormal. NEUROLOGIC: a lert and oriented, cranial nerves 2-12 grossly intact, deep tendon reflexes 2+ symmetrical, motor strength normal upper and lower extremities, sensory exam intact. PSYCH: a lert, oriented. Assessment: * Assessment: 1. C hronic lymphocytic leukemia - C91.10 (Primary) N otes :The chronic lymphocytic leukemia is stable without change. Observation will continue. 2 . M ixed hyperlipidemia - E78.2 N otes :She continues on the rosuvastatin. I recommended she have her lipids checked 2 or 3 times a year. 3 . C hronic GERD - K21.9 N otes :Her reflexes well controlled with the current regimen which was continued without change. 4 . O steopenia of lumbar spine - M85.88 N otes :She has a history of osteopenia. This is being managed by primary care. 5 . T obacco dependence - F17.200 N otes :I recommended smoking cessation and made her aware of the smoking cessation programs at the local hospital. We spent significant time today discussing her cardiovascular risk factors. We have discussed Takes for smoking cessation at length. She will consider taking medication. Plan: * Treatment: 2. M ixed hyperlipidemia L AB: PROFILE, RANDOM (COMPREHENSIVE METABOLIC) L AB: CBC w DIFF 3. O thers Continue Famotidine Tablet, 40 MG, [...] Follow-up D ietary management education, guidance, and counseling S moking/Tobacco Use Patient counseled on the dangers of tobacco use and urged to quit. 0 10/23/2024 Patient Lifestyle Goals P atient wants to quit Treatment Goals S et a quit date Barriers S ocial smoker, Stress Self-Management Plan M eulogio a plan to cut down number of cigarettes over time and set a date to work towards quitting * Follow Up: 6 Months (Reason: OV) * Images: * Sign off status: Completed true * Provider: Loy Rodriguez MD Date: 0 10/23/2024 Generated for Sylvia delaney/Jose/Románransmitting on: 1 07/28/2024 07:43 AM EST History and Physical Notes * HPI (History of Present Illness) Category Sub-Category Detail Notes COVID-19 Screening Questions Have you had any new onset fever, chills, cough, congestion, sore throat, shortness of breath, muscle aches?: No Examination Category Sub-Category Detail Notes General Examination GENERAL APPEARANCE: pleasant , well nourished, well developed, in no acute distress, calm and relaxed, woman, overweight, woman HEAD: atraumatic, normocep halic EYES: eomi, perrla, anicte heather, conjugate EARS: normal NOSE: septum intact NECK/THYROID: no jugular venous di stention, no carotid bruit, thyroid normal HEART: no clicks, gallops, murmurs, or rubs, regular rhythm, S1, S2 normal, no s3, or vascular bruits LUNGS: clear to auscultatio n ABDOMEN: bowel sounds normal, no ascites, no organomegaly, no mass, overweight NEUROLOGIC: alert and oriented, cranial nerves 2-12 grossly intact, deep tendon reflexes 2+ symmetrical, motor strength normal upper and lower extremities, sensory exam intact SKIN: no suspicious lesion s, anicteric PERIPHERAL PULSES: normal BREASTS: Not examined MUSCULOSKELETAL: extremities unremark able, no clubbing, cyanosis or edema LYMPH NODES: no enlarged lymph no caity,spleen normal RECTAL EXAM: not examined PSYCH: alert, oriented ORAL CAVITY: normal, unremarkable
--- OUTSIDE RECORDS SUMMARY | 2025-04-30 07:00 | XMS_ITS ---
Author Organization Mamadou Rodriguez III, MD Address [address] [place] [address] [place] [address] Care Team Providers Care Belting And Webbing Inspector Name Role Phone Jeniffer COLINDRES, Angela Primary Care Provider Dr. Mamadou Freeman III [facility] [phone] REASON FOR VISIT Followup Social History Sex Assigned At : Social History Observation Description Sex Assigned At Female Encounters Encounter Location Date Provider Diagnosis Mamadou Rodriguez III, MD [address] [place] [address] [place] [address] 04/30/2025 Mamadou Rodriguez Plan Of Treatment Next Appt Details Provider Name:Mamadou Rodriguez , 06/04/2025 10:30:00 AM, [address] [place] [address] [address], [place], [address], Progress Notes * Daisy SCHUMACHERB:1944 (80 yo F)Acc No.[id number]:04/30/2025 Progress Notes Patient: Anabella GOMES Provider: Loy Rodriguez MD :1945 A ge:80 Y S ex:Female Date:04/30/2025 [address] [id number] Pcp:Angela Swift MD Subjective: * Chief Complaints: * 1 . Followup. * Medical History: Objective: * Vitals: Assessment: Plan: * Treatment: * Images: * The named appointment provid er may or may not be the originator of this progress note, and it is not deemed complete until electronically signed by the appointment provider. Sign off status: Pending * Provider: Loy Rodriguez MD Date: Generated for Sylvia delaney/Jose/Weston on: 07/28/2024 07:43 AM EST
--- OUTSIDE RECORDS SUMMARY | 2025-05-19 12:00 | XMS_ITS ---
Author Organization Mamadou Rodriguez III, MD Address [address] [place] [address] [place] [address] Care Team Providers Care Flame Cutting Machine Operator Name Role Phone Jeniffer COLINDRES, Angela Primary Care Provider Dr. Mamadou Freeman III [facility] REASON FOR VISIT Followup Social History Sex Assigned At : Social History Observation Description Sex Assigned At Female Encounters Encounter Location Date Provider Diagnosis Mamadou Rodriguez III, MD [address] [place] [address] [place] [address] 05/19/2025 Mamadou Rodriguez Plan Of Treatment Next Appt Details Provider Name:Mamadou Rodriguez , 06/04/2025 10:30:00 AM, [address] [place] [address] [address] [place], [place], [address], Progress Notes * Daisy SCHUMACHERB:1944 (80 yo F)Acc No.[id number]:05/19/2025 Progress Notes Patient: Dana GOMESyna Provider: Loy Rodriguez MD :1945 A ge:80 Y S ex:Female Date:05/19/2025 Address:[address] [id number] Pcp:Angela Swift MD Subjective: * Chief Complaints: * 1 . Followup. * Medical History: Objective: * Vitals: Assessment: Plan: * Treatment: * Images: * The named appointment provid er may or may not be the originator of this progress note, and it is not deemed complete until electronically signed by the appointment provider. Sign off status: Pending * Provider: Loy Rodriguez MD Date: 1 Generated for Sylvia delaney/Jose/Weston on: 07/28/2024 07:43 AM EST
--- OUTSIDE RECORDS SUMMARY | 2025-05-28 07:44 | XMS_ITS | Patient Health Record ---
Author Organization Mamadou Rodriguez III, MD Address [address] [place] [address] Care Team Providers Care Laundry Route Driver Name Role Phone Jeniffer COLINDRES, [facility] Primary Care Provider Dr. Mamadou Freeman III Unavailable Allergies Allergen (clinical drug ingredient) Drug/Non Drug Allergy documented on EMR Reaction Allergy Type Onset Date Status Penicillin Unknown Drug Allergy Active hydrochlorothiazide Hydrochlorothiazide Unknown Drug Aller gy Active atorvastatin Atorvastatin Calcium Unknown Drug Allergy Active aspirin Aspirin Unknown Drug Allergy Active Results Component Value Reference Range Notes Complete Blood Count Auto Di ff Reviewed date:10/15/2024 08:49:12 AM Interpretation: Performing Lab:[facility], [address] [place] [phone] Notes/Report: White Blood Count 14.8 4.8-10.8 X10*3/uL [...] te Reviewed date:10/15/2024 08:49:12 AM Interpretation: Performing Lab:[facility], [address] [place] [phone] Notes/Report: Erythrocyte Sedimentation Rate 10 0-20 MM/HR Patients with polycythemia and many hemoglobin abnormalities may have depressed sed rates whereas patients with anemia may have elevated sed rates. Comprehensive Met. Panel Reviewed date:10/15/2024 08:49:12 AM Interpretation: Performing Lab:[facility], [address] [place] [phone] Notes/Report: Sodium 144 135-145 mmol/L Potassium 4.5 [...] Dehydrogenase Reviewed date:10/15/2024 08:49:12 AM Interpretation: Performing Lab:[facility], [address] [place] [phone] Notes/Report: Lactate Dehydrogenase 192 122-220 U/L Beta-2 Microglobulin, Serum Reviewed date:10/20/2024 04:52:46 AM Interpretation: Performing Lab:[facility], [address] [place] [phone] Notes/Report: Beta-2 Microglobulin, Serum 2.48 < OR = 2.51 mg/L THIS TEST WAS PERFORMED AT: [facility] [address] [place] [phone] PRASHANTH SAMPSON MD SLIDE REVIEW Reviewed date:10/15/2024 08:49:12 AM Interpretation: Performing Lab:[facility], [address] [place] [phone] Notes/Report: SLIDE REVIEW VERIFIED Reason For Referral [...] e morning Orally Once a day Active Social [...] Problem Status W/U Status Risk Notes Problem 582644787 Overweight (E66.3) Active confirmed Her body mass index is 28. She has remained stable. We have discussed diet and nutrition and weight reduction strategies today. Problem 770173921 Mixed hyperlipidemia (E78.2) Active confirmed She continues o n the rosuvastatin. I recommended she have her lipids checked 2 or 3 times a year. Problem 40835701 Tobacco dependence (F17.200) Active confirmed I recommended smoking cessation and made her aware of the smoking cessation programs at the local hospital. We spent significant time today discussing her cardiovascular risk factors. We have discussed Takes for smoking cessation at length. She will consider taking medication. Problem 78669190 Penicillin allergy (Z88.0) Active confirmed She is aware of this allergy and avoids penicillin. Problem 24956224 Chronic lymphocytic leukemia (C91.10) Active confirmed The chronic lymphocytic leukemia is stable without change. Observation will continue. Problem 359618490 Chronic GERD (K21.9) Active confirmed Her reflexes well controlled with the current regimen which was continued without change. Problem 067402537 Osteopenia of lumbar spine (M85.88) Active confirmed [...] Date Provider Diagnosis Mamadou Rodriguez III, MD [address] [place] [address] [place] [address] 10/23/2024 Mamadou Rodriguez Chronic lymphocytic leukemia C91.10 ; Mixed hyperlipidemia E78.2 ; Chronic GERD K21.9 ; Osteopenia of lumbar spine M85.88 and Tobacco dependence F17.200 Assessments Encounter Date Diagnosis (ICD Code) Assessment Notes Treat ment Notes Treatment Clinical Notes 10/23/2024 Mixed hyperlipidemia (ICD-10 - E78.2) She continues on the rosuvastatin. I recommended she have her lipids checked 2 or 3 times a year. 10/23/2024 Chronic lymphocytic leukemia (ICD-10 - C91.10) The chronic lymphocytic leukemia is stable without change. Observation will continue. 10/23/2024 Chronic GERD (ICD-10 - K21.9) Her [...] C) 04/24/2023 PROFILE, RANDOM (COMPREHENSIVE METABOLIC ) 03/28/2022 PROFILE, RANDOM (COMPREHENSIVE METABOLIC ) 12/21/2020 PROFILE, RANDOM (COMPREHENSIVE METABOLIC ) 05/05/2020 PROFILE, RANDOM (COMPREHENSIVE METABOLIC ) 10/23/2024 PROFILE, RANDOM (COMPREHENSIVE METABOLIC ) 04/24/2024 PROFILE, RANDOM (COMPREHENSIVE METABOLIC ) 10/24/2023 PROFILE, RANDOM (COMPREHENSIVE METABOLIC ) 09/20/2020 PROFILE, RANDOM (COMPREHENSIVE METABOLIC ) 02/26/2020 PROFILE, RANDOM (COMPREHENSIVE METABOLIC ) 09/23/2021 PROFILE, RANDOM (COMPREHENSIVE METABOLIC ) 04/19/2021 PROFILE, RANDOM (COMPREHENSIVE METABOLIC ) 10/18/2022 URIC ACID 02/26/2020 URIC ACID 02/13/2020 LIPID PANEL 04/24/2023 LDH 04/24/2023 LDH 04/19/2021 LDH 10/18/2022 LDH 03/28/2022 LDH 02/13/2020 LDH 12/21/2020 LDH 04/24/2024 LDH 10/24/2023 CBC w DIFF 09/23/2021 CBC w DIFF 02/26/2020 CBC w DIFF 04/24/2023 CBC w DIFF 04/19/2021 CBC w DIFF 10/18/2022 CBC w DIFF 03/28/2022 CBC w DIFF 05/05/2020 CBC w DIFF 10/23/2024 CBC w DIFF 12/21/2020 CBC w DIFF 09/20/2020 SED RATE (ESR) 10/24/2023 SED RATE (ESR) 04/24/2023 SED RATE (ESR) 04/19/2021 SED RATE (ESR) 10/18/2022 SED RATE (ESR) 04/24/2024 LEUKEMIA & LYMPHOMA EVAL (LLE) BLOOD BETA-2 MICROGLOBULIN, SERUM 09/20/2020 BETA-2 MICROGLOBULIN, SERUM 03/28/2022 MAMMOGRAM DIGITAL BILATERAL SCREEN 04/19 CBC WITH AUTO DIFF 04/24/2024 CBC WITH AUTO DIFF 10/24/2023 Beta-2 Microglobulin, Serum 04/24/2024 Beta-2 Microglobulin, Serum 10/24/2023 Next Appt Details Provider Name:Mamadou Rodriguez , 06/04/2025 10:30:00 AM, [address] [place] [address] , [facility] [address], [place], [address], Insurance Providers Payer Name Payer Address Payer Phone Subscriber Number Group Number Insured Name Patient Relationship to Insured Coverage Start Date Coverage End Date [employer] PREFERRED [address] [place] [place] [address] [id number] Anabella Schumacher Self - patient is the insured MEDICARE NGS [address] [place] [phone] [id number] Anabella Schumacher Self - patient is the insured Medical (General) History Medical History History ICD Code Hypertension I10 GERD hyperlipidemia history of herpes zoster osteopenia lymphocytosis Overweight tobacco dependence penicillin allergic Surgical History Surgery Date(Month/Year) none reported
[2025-05-28 08:18] LABS: Hematocrit 37.5 % (37.0-47.0); Hemoglobin 12.2 g/dl (12.0-16.0); Imm Gran Abs Auto 0.02 X10*3/uL (0.00-0.03); Imm Gran Pct Auto 0.1 % (0.0-0.4); MANUAL DIFF FLAG SCAN; Mean Corpuscular HGB Conc 32.5 g/dl (31.0-35.0); Mean Corpuscular Hemoglobin 29.2 pg (27.0-33.0); Mean Corpuscular Volume 89.7 fL (80.0-98.0); NRBC Abs Auto 0.000 X10*3/uL (0.0-0.012); NRBC Pct Auto 0.0 /100WBC (0.0-0.2); Platelet Count 199 X10*3/uL (160-400); Red Blood Count 4.18 X10*6/uL (4.20-5.50); SCAN SMEAR FLAG 1; White Blood Count 16.3 X10*3/uL (4.8-10.8)
[2025-05-28 08:21] LABS: Lymphocytes Absolute Auto 12.1 X10*3/uL (1.2-4.9)
[2025-05-28 08:44] LABS: Alanine Aminotransferase 23 U/L (0-31); Albumin Level 4.4 g/dL (3.5-5.0); Alkaline Phosphatase 59 U/L (39-117); Anion Gap 12 (12-20); Aspartate Amino Transferase 23 U/L (5-31); Blood Urea Nitrogen 22 mg/dL (9-16); Calcium 9.5 mg/dL (8.4-10.2); Carbon Dioxide 28 mmol/L (22-29); Chloride 107 mmol/L (96-108); Estimated Glomerular Filt Rate 38; Potassium 4.0 mmol/L (3.3-5.1); Sodium 143 mmol/L (135-145); Total Protein 7.0 g/dL (6.5-8.0)
== END 2025-05-28 07:41 | disposition home or self-care (01) ==
LOC: HO.LAB 07:40
PROVIDERS: PCP Internal Medicine; Visit Provider Internal Medicine Medical Oncology
DX: C91.10 Chronic lymphocytic leukemia of B-cell type not having achieved remission (principal); E78.2 Mixed hyperlipidemia
CPT/HCPCS: 36415; 80053; 85025